=== PATIENT | female | born 1970 | race Native Hawaiian/Other Pacific Islander ===

== ENCOUNTER → 2016-10-24 | Outpatient (CLI) | payer OTHER ==
--- NOTE | 2016-10-25 10:25 | MM ---
Reason for exam: screening (asymptomatic). Last mammogram was performed 2 years and 6 months ago. History: Took hormonal contraceptives for 1 year. Physical Findings: A clinical breast exam by your physician is recommended on an annual basis and results should be correlated with mammographic findings. MG Screening Mammo w CAD Bilateral CC and MLO view(s) were taken. Prior study comparison: April 17, 2014, bilateral MG screening mammo w CAD. December 06, 2012, mammogram, performed at [place]. The breast tissue is extremely dense which could obscure a lesion on mammography. Finding: There are typically benign calcifications in the right breast. No significant changes in finding since April 17, 2014 and December 06, 2012. ASSESSMENT: Benign, BI-RAD 2 RECOMMENDATION: Routine screening mammogram of both breasts in 1 year.
== END | disposition home or self-care (01) ==
LOC: RADMAMWWP 15:12
PROVIDERS: ATTEND Family Medicine
DX: Z12.31 Encounter for screening mammogram for malignant neoplasm of breast (principal)

== ENCOUNTER → 2016-11-04 | Outpatient (CLI) | payer OTHER ==
--- NOTE | 2016-11-04 14:06 | US ---
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 GLAND SIZE: Right Lobe: 3.6 x 3.5 x 1.3 cm Overall Parenchyma: homogenous Left Lobe: 4.3 x 1.3 x 1.5 cm Overall Parenchyma: homogeneous Isthmus Thickness: 0.3 cm NODULES RIGHT: # of nodules measured on right: 0 LEFT: # of nodules measured on left: 0 ISTHMUS: # of nodules measured in the isthmus: 0 Findings: Bilateral neck scanned, no abnormal lymphadenopathy noted. NO distinct nodule noted on toda y's exam IMPRESSION: Normal study
== END | disposition home or self-care (01) ==
LOC: RADUSWWP 13:41
PROVIDERS: ATTEND Family Medicine
DX: E04.8 Other specified nontoxic goiter (principal)
CPT/HCPCS: 76536

== ENCOUNTER → 2017-02-03 | Outpatient (CLI) | payer OTHER ==
--- NOTE | 2017-02-03 17:14 | CT ---
EXAMINATION TYPE: CT abdomen w con DATE OF EXAM: 02/03/2017 4:33 PM COMPARISON: 05/26/2016 HISTORY: Patient complains of chronic periumbilical pain with periodic nausea and vomiting. CT DLP: 784 mGycm Automated exposure control for dose reduction was used. TECHNIQUE: Helical acquisition of images was performed from the lung bases through the top of iliac crest to include entire abdomen. CONTRAST: Performed with Oral Contrast and with IV Contrast, patient injected with 100 mL of Omnipaque 300. FINDINGS: Lung bases are clear. There is no pleural effusion. There are clips at the gastroesophageal junction. There is no pericardial effusion. Liver spleen pancreas appear normal. Gallbladder is absent. Bile ducts are not dilated. There is no a drenal mass. Kidneys show satisfactory contrast opacification. There is no hydronephrosis. There is a small umbilical hernia that contains omental fat. I see no sign of a bowel obstruction. There is no sign of ascites. There is no retroperitoneal adenopathy. The bony structures are intact. IMPRESSION: THERE IS CLEARING OF THE SUBSEGMENTAL ATELECTASIS COMPARED TO OLD EXAM. NO SIGN OF ACUTE ABDOMEN AND PELVIS. THERE IS CLEARING OF THE MILD EDEMA AT THE UMBILICUS COMPARED TO OLD EXAM. SMALL UMBILICAL HE RNIA.
== END | disposition home or self-care (01) ==
LOC: RADCTMAIN 15:31
PROVIDERS: ATTEND Family Medicine
DX: K42.9 Umbilical hernia without obstruction or gangrene (principal)
CPT/HCPCS: 74160; Q9967

== ENCOUNTER → 2017-03-15 | Outpatient (CLI) | payer OTHER ==
--- NOTE | 2017-03-15 13:16 | FL ---
Modified barium swallow. HISTORY: Dysphagia. Modified barium swallow was performed with the department of speech pathology. The patient was prese nted with various consistencies of barium. There is no evidence for aspiration or penetration. Full report is to follow from the department of speech pathology. Impression: Normal study.
== END | disposition home or self-care (01) ==
LOC: RADFLMAIN 10:55
PROVIDERS: ATTEND Family Medicine
DX: R13.19 Other dysphagia (principal)
CPT/HCPCS: 74230

== ENCOUNTER → 2017-04-25 | Outpatient (CLI) | payer OTHER ==
--- NOTE | 2017-04-25 16:35 | XR ---
Sinus HISTORY: Pain 4 views of the sinus Correlation to mandible same date Paranasal sinuses appear well aerated, question rounded density in the maxillary antrum right maxilla ry sinus. Bone mineralization is maintained. No evident lytic or blastic lesion. Orbits are intact. IMPRESSION: Correlate for point tenderness to assess for sinusitis. Possible mucus retention cyst rig ht maxillary sinus, CT scan of the sinus could be performed for better evaluation.
--- NOTE | 2017-04-25 16:36 | XR ---
Mandible HISTORY: Pain 4 views of the mandible Temporomandibular joints appear intact. No fracture or dislocation. Bone mineralization is maintained . Question asymmetric appearance to the mandible the patient may be rotated. IMPRESSION: No significant abnormality evident. Possible congenital anomaly.
== END | disposition home or self-care (01) ==
LOC: RADXRYALE 14:50
PROVIDERS: ATTEND Nurse Practitioner Family
DX: J32.9 Chronic sinusitis, unspecified (principal); R68.84 Jaw pain; R13.12 Dysphagia, oropharyngeal phase; K14.6 Glossodynia
CPT/HCPCS: 70110; 70220

== ENCOUNTER → 2017-05-04 | Outpatient (CLI) | payer OTHER ==
--- NOTE | 2017-05-04 17:03 | CT ---
EXAMINATION TYPE: CT sinus wo con DATE OF EXAM: 05/04/2017 COMPARISON: NONE HISTORY: Pain to sinus and jaw area x2 months. CT DLP: 581.[address] of the paranasal sinuses was performed in the axial and coronal planes. Bone and soft tissue settings are submitted. The paranasal sinuses demonstrate normal aeration and development. The paranasal sinuses are free of mucosal thickening or air fluid level. The osteal meatal units are patent bilaterally. The nasal septum is midline. No bony destructive changes are seen within the field of view. IMPRESSION: Normal unenhanced CT of the paranasal sinuses.
== END | disposition home or self-care (01) ==
LOC: RADCTMAIN 15:55
PROVIDERS: ATTEND Family Medicine
DX: J34.1 Cyst and mucocele of nose and nasal sinus (principal)
CPT/HCPCS: 70486

== ENCOUNTER → 2017-06-26 | Outpatient (CLI) | payer OTHER ==
--- NOTE | 2017-06-26 20:57 | CT ---
EXAMINATION TYPE: CT soft tissue neck w con DATE OF EXAM: 06/26/2017 8:22 PM COMPARISON: NONE HISTORY: Sore throat x 2-[address] DLP: 249.10 mGycm Automated exposure control for dose reduction was used. CONTRAST: CT scan of the neck is performed following with IV Contrast, patient injected with 100 mL of Omnipaqu e 300. Axial images are obtained, coronal and sagittal reformatted images are reviewed. FINDINGS: Apical pleural thickening within the lungs noted. Thyroid gland has a normal appearance. Vasculature enhances normally. Submandibular and parotid glands have a normal appearance Intraorbital and intracranial structures are symmetric. Nasopharynx and oropharynx are symmetric. Pre vertebral soft tissues and retropharyngeal soft tissue structures within normal limits Focal cords have a normal appearance. Base of tongue is symmetric. No pathologic adenopathy. Area of curvilinear enhancement along the margin of the right submandibular gland appears vascular related to blood vessels on the coronal and sagittal images. Hypertrophic and degenerative change of the spine. Epiglottis has a normal appearance. Shotty adenopa thy in the soft tissue the neck noted. IMPRESSION: No acute process.
== END | disposition home or self-care (01) ==
LOC: RADCTMAIN 19:34
PROVIDERS: ATTEND Otolaryngology
DX: R07.0 Pain in throat (principal); R13.10 Dysphagia, unspecified
CPT/HCPCS: 86800; 86376; 70491; 36415; Q9967

== ENCOUNTER → 2017-10-19 | Outpatient (CLI) | payer OTHER ==
--- NOTE | 2017-10-20 08:13 | CT ---
EXAMINATION TYPE: CT abdomen pelvis wo/w con DATE OF EXAM: 10/19/2017 COMPARISON: NONE INDICATION: LUQ pain and bloating x1 year. DLP: 642 mGycm, Automated exposure control for dose reduction was used. CONTRAST: 100 mL of Omnipaque 300. Study performed with Oral Contrast TECHNIQUE: Axial images were obtained from above the diaphragm to the pubic rami in the axial plane a t 5 mm thick sections. Reconstructed images are reviewed on the computer in the coronal plane. FINDINGS: Limited CT sections are obtained the lung bases. The lung bases are clear. CT ABDOMEN: There is an anterior abdominal wall hernia containing mesenteric fat with an opening of 3 .5 cm in the periumbilical region. No bowel are involved in close approximation with the opening. Liver: Normal Spleen: Normal Pancreas: Normal Adrenal glands: The adrenal glands are normal. Gallbladder: Normal Kidneys: No masses are evident. No hydronephrosis is present. No cysts are present. No renal stone s are identified. Postcontrast imaging is performed. No renal masses are identified. Aorta: Normal Inferior vena cava: Normal. CT PELVIS: Loops of bowel within the abdomen and pelvis are normal. Few diverticuli are present within the r egion of the cecum and within the sigmoid colon. Appendix: Not clearly identified. No suspicious inflammatory changes or dilated structures are eviden t. Urinary bladder: Urinary bladder appears unremarkable. Genitourinary structures: Uterus is normal. Adnexal regions are clear. Surgical clips are adjacent to the uterus. Osseous structures: No suspicious lytic or sclerotic lesions. IMPRESSIONS: 1. No acute abdomen or pelvis changes. 2. Diverticulosis without acute diverticulitis
== END | disposition home or self-care (01) ==
LOC: RADCTMAIN 16:03
PROVIDERS: ATTEND Nurse Practitioner Family
DX: K57.90 Diverticulosis of intestine, part unspecified, without perforation or abscess without bleeding (principal); R10.12 Left upper quadrant pain; R39.15 Urgency of urination
CPT/HCPCS: 74178; Q9967

== ENCOUNTER → 2017-12-28 | Outpatient (CLI) | payer OTHER ==
--- NOTE | 2017-12-29 14:05 | MR ---
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 No evident adenopathy. No free fluid in the pelvi s. Susceptibility artifacts are present compatible with fallopian tubal ligation clips. Suspect some nabothian cysts at the level of the cervix Urinary bladder is within normal limits. No abnormal enhan cement following contrast administration. Retained fecal debris present within the colon. Bone marrow signal is maintained. IMPRESSION: Correlate for fecal stasis. Postop changes. No significant interval change compared to pr ior CT.
== END | disposition home or self-care (01) ==
LOC: RADMRIMAIN 17:58
PROVIDERS: ATTEND Urology
DX: D41.3 Neoplasm of uncertain behavior of urethra (principal); Z98.890 Other specified postprocedural states
CPT/HCPCS: 72197; A9581

== ENCOUNTER 2018-02-16 21:44 | Emergency (ER) | payer OTHER ==
[2018-02-16 22:51] LABS: Basophils # (A) 0.1 k/uL (0-0.2); Basophils % (A) 1 %; Eosinophils # (A) 0.3 k/uL (0-0.7); Eosinophils % (A) 4 %; HCT 35.1 % (34.0-46.0); HGB 11.5 gm/dL (11.4-16.0); Lymphocytes # (A) 2.9 k/uL (1.0-4.8); Lymphocytes % (A) 34 %; MCH 26.7 pg (25.0-35.0); MCHC 32.7 g/dL (31.0-37.0); MCV 81.8 fL (80.0-100.0); Mean Platelet Volume 7.7; Monocytes # (A) 0.4 k/uL (0-1.0); Monocytes % (A) 5 %; Neutrophils # (A) 4.7 k/uL (1.3-7.7); Neutrophils % (A) 55 %; Platelet Count 284 k/uL (150-450); RBC 4.29 m/uL (3.80-5.40); RDW 14.8 % (11.5-15.5); WBC 8.5 k/uL (3.8-10.6)
[2018-02-16 22:52] LABS: Appearance,Urine Clear (Clear); Bilirubin,Urine Negative (Negative); Blood,Urine Negative (Negative); Color,Urine Colorless; Glucose,Urine (UA) Negative (Negative); Ketones,Urine Negative (Negative); Leukocyte Esterase,Urine Negative (Negative); Nitrite,Urine Negative (Negative); PH, Urine 5.5 (5.0-8.0); Protein,Urine Negative (Negative); Specific Gravity,Urine 1.006 (1.001-1.035); Urobilinogen,Urine <2.0 mg/dL (<2.0)
[2018-02-16 23:00] LABS: Albumin 4.7 g/dL (3.5-5.0); Calcium 9.3 mg/dL (8.4-10.2); Potassium 3.6 mmol/L (3.5-5.1); Total Bilirubin 0.3 mg/dL (0.2-1.3); Total Protein 8.9 g/dL (6.3-8.2)
--- NOTE | 2018-02-17 00:20 | ED ---
Abdominal Pain HPI - General Chief Complaint: Abdominal Pain Stated Complaint: Abd pain Time Seen by Provider: 02/16/18 22:23 Source: patient, family Mode of arrival: ambulatory Limitations: language barrier - History of Present Illness Initial Comments: 47-year-old female patient presents to the emergency department today for evaluation of upper abdominal pain. Patient states that the pain has been going on over the last several months. States that the pain worsened this evening. She denies any radiation of the pain into her back. Denies any fevers or chills. Denies any nausea or vomiting. Patient states that she did have computed tomography scan in October, showed no abnormalities. and daughter provided most of history is is a language barrier but they report that patient has been to see specialist in known can figure out what is wrong. Patient denies any alcohol or drug use. She denies any constipation or diarrhea. Patient has had hernia surgery in the past. Patient denies any recent rash, shortness breath, chest pain, numbness, tingling, dizziness, weakness, hematuria, dysuria, urinary urgency, urinary frequency, headache, visual changes, or any other complaints. - Related Data Home Medications Medication Instructions Recorded Confirmed Doxycycline Hyclate 100 mg PO BID 02/16/18 02/16/18 Levothyroxine Sodium [Synthroid] 50 mcg PO DAILY 02/16/18 02/16/18 Omeprazole 40 mg PO DAILY 02/16/18 02/16/18 Allergies Allergy/AdvReac Type Severity Reaction Status Date / Time No Known Allergies Allergy Verified 02/16/18 22:19 Review of Systems ROS Statement: Those systems with pertinent positive or pertinent negative responses have been documented in the HPI. ROS Other: All systems not noted in ROS Statement are negative. Past Medical History Past Medical History: GERD/Reflux, Osteoarthritis (OA) Additional Past Medical History / Comment(s): CURRENTLY HAVING STOMACH PAIN.HX. GASTRITIS History of Any Multi-Drug Resistant Organisms: None Reported Past Surgical History: Cholecystectomy, Tubal Ligation Additional Past Surgical History / Comment(s): EGD & COLONOSCOPY, Afsaneh fundoplication Past Anesthesia/Blood Transfusion Reactions: No Reported Reaction Past Psychological History: Anxiety, Depression Smoking Status: Never smoker Past Alcohol Use History: Rare Past Drug Use History: None Reported - Past Family History Mother Family Medical History: No Reported History Father Family Medical History: Myocardial Infarction ([place]) Additional Family Medical History / Comment(s): Patient has 2 brothers that are healthy and 5 sisters that are healthy. Patient has 2 sons and 2 daughters that are healthy with no major medical problems. General Exam Limitations: language barrier General appearance: alert, in no apparent distress, other (This is a well- developed, well-nourished adult female patient in no acute distress. Vital signs upon presentation are temperature 98.2F, pulse 77, respirations 16, blood pressure 175/96, pulse ox 98% on room air.) Eye exam: Present: normal appearance, PERRL, EOMI. Absent: scleral icterus, conjunctival injection, periorbital swelling ENT exam: Present: normal exam, normal oropharynx, mucous membranes moist Respiratory exam: Present: normal lung sounds bilaterally. Absent: respiratory distress, wheezes, rales, rhonchi, stridor Cardiovascular Exam: Present: regular rate, normal rhythm, normal heart sounds. Absent: systolic murmur, diastolic murmur, rubs, gallop, clicks GI/Abdominal exam: Present: soft, normal bowel sounds. Absent: distended, tenderness, guarding, rebound, rigid Neurological exam: Present: alert, oriented X3, CN II-XII intact Psychiatric exam: Present: normal affect, normal mood Skin exam: Present: warm, dry, intact, normal color. Absent: rash Course Vital Signs 02/16/18 02/17/18 21:57 00:26 Temperature 98.2 F 98.8 F Pulse Rate 77 64 Respiratory 16 18 Rate Blood Pressure 175/96 147/70 O2 Sat by Pulse 98 95 Oximetry Medical Decision Making - Medical Decision Making 47-year-old female patient presented to the emergency department today for evaluation of upper abdominal pain. Physical examination was relatively unremarkable. Abdomen was soft and nontender. Labs reviewed and did reveal mildly elevated lipase with this is not new for the patient. Patient states that the pain is improved at this time. She denied any need for pain medication. Did discuss results and findings with the patient and her family. They're instructed to follow-up with her primary care physician as well as request specialist consultation of her pain symptoms continue. Return parameters discussed in detail. Patient and family verbalizes understanding and agrees with this plan. - Lab Data Result diagrams: 02/16/18 22:43 02/16/18 22:43 Lab Results 06/04/2802/16/18 02/16/18 Range/Units 22:43 22:43 22:43 WBC 8.5 (3.8-10.6) k/uL RBC 4.29 (3.80-5.40) m/uL Hgb 11.5 (11.4-16.0) gm/dL Hct 35.1 (34.0-46.0) % MCV 81.8 (80.0-100.0) fL MCH 26.7 (25.0-35.0) pg MCHC 32.7 (31.0-37.0) g/dL RDW 14.8 (11.5-15.5) % Plt Count 284 (150-450) k/uL Neutrophils % 55 % Lymphocytes % 34 % Monocytes % 5 % Eosinophils % 4 % Basophils % 1 % Neutrophils # 4.7 (1.3-7.7) k/uL Lymphocytes # 2.9 (1.0-4.8) k/uL Monocytes # 0.4 (0-1.0) k/uL Eosinophils # 0.3 (0-0.7) k/uL Basophils # 0.1 (0-0.2) k/uL Sodium 145 (137-145) mmol/L Potassium 3.6 (3.5-5.1) mmol/L Chloride 107 (98-107) mmol/L Carbon Dioxide 24 (22-30) mmol/L Anion Gap 14 mmol/L BUN 18 H (7-17) mg/dL Creatinine 1.00 (0.52-1.04) mg/dL Est GFR (CKD-EPI)AfAm 77 (>60 ml/min/1.73 sqM) Est GFR (CKD-EPI)NonAf 67 (>60 ml/min/1.73 sqM) Glucose 99 (74-99) mg/dL Calcium 9.3 (8.4-10.2) mg/dL Total Bilirubin 0.3 (0.2-1.3) mg/dL AST 35 (14-36) U/L ALT 39 (9-52) U/L Alkaline Phosphatase 90 (38-126) U/L Total Protein 8.9 H (6.3-8.2) g/dL Albumin 4.7 (3.5-5.0) g/dL Amylase 102 (30-110) U/L Lipase 368 H (23-300) U/L Urine Color Colorless Urine Appearance Clear (Clear) Urine pH 5.5 (5.0-8.0) Ur Specific [place] 1.006 (1.001-1.035) Urine Protein Negative (Negative) Urine Glucose (UA) Negative (Negative) Urine Ketones Negative (Negative) Urine Blood Negative (Negative) Urine Nitrite Negative (Negative) Urine Bilirubin Negative (Negative) Urine Urobilinogen <2.0 (<2.0) mg/dL Ur Leukocyte Esterase Negative (Negative) Disposition Clinical Impression: Abdominal pain Disposition: HOME SELF-CARE Condition: Good Instructions: Abdominal Pain (ED) Additional Instructions: Follow-up with your primary care physician as soon as possible. Discuss referral to specialist. Return here immediately for any new, worsening, or concerning symptoms. Is patient prescribed a controlled substance at d/c from ED?: No Referrals: Nancy Gallardo DO [Primary Care Provider] - 1-2 days Time of Disposition: 00:20
[2018-02-17 00:27] VITALS: BP 147/70; PULSE 64; RESP 18; TEMP 98.8
== END 2018-02-17 00:30 | disposition home or self-care (01) ==
LOC: EC 21:44
DX: R10.10 Upper abdominal pain, unspecified (principal); R74.8 Abnormal levels of other serum enzymes; K21.9 Gastro-esophageal reflux disease without esophagitis; Z79.899 Other long term (current) drug therapy; Z87.19 Personal history of other diseases of the digestive system; Z90.49 Acquired absence of other specified parts of digestive tract; Z98.890 Other specified postprocedural states
CPT/HCPCS: 36415; 80053; 81003; 82150; 83690; 85025; 99284

== ENCOUNTER 2018-05-17 10:38 | Day surgery (SDC) | payer OTHER ==
[2018-05-15 15:39] VITALS: BMI 24.5
[~2018-05-17 10:38] MED LIST: LACTATED RINGERS 1,000 ML IV SCH
[2018-05-17 11:04] VITALS: RESP 16; TEMP 97.2
[2018-05-17] MEDS ORDERED: LIDOCAINE 1% 20 ML VIAL (10MG/ML) FOR IV START INTRADERMA ONE (11:10)
[2018-05-17] MEDS ORDERED: LIDOCAINE 1% INJ 10MG/ML (20 ML MDV) ONE (11:11)
[2018-05-17] MEDS ORDERED: PROPOFOL 10 MG/ML 20 ML VIAL IV ONE (11:11)
--- NOTE | 2018-05-17 11:33 | P.PCN ---
Date of Procedure: 05/17/18 Procedure(s) Performed: BRIEF HISTORY: Patient is a 47-year-old, pleasant, female, scheduled for an upper endoscopy as a part of evaluation of heartburn, epigastric discomfort and left upper quadrant abdominal pain for the last 2 years duration. She has history of GERD and underwent Afsaneh fundoplication 2 years ago with no improvement in his symptoms. She is hence scheduled for an upper endoscopy to evaluate further. PROCEDURE PERFORMED: Esophagogastroduodenoscopy with biopsy. PREOPERATIVE DIAGNOSIS: Epigastric pain and heartburn of 2 years duration. IV sedation per anesthesia. PROCEDURE: After informed consent was obtained, the patient was brought into the endoscopy unit. IV sedation was administered by Anesthesia under continuous monitoring. Initially the Olympus GIF-140 video endoscope was inserted into the mouth. Esophagus intubated without any difficulty. It was gradually advanced into the stomach and duodenum and carefully examined. The bulb and the second part of the duodenum appeared normal. Abscess were done from this area to rule out celiac disease. The scope at this time was withdrawn to the stomach, adequately insufflated with air, and upon careful examination, mucosa of the antrum had patchy areas of erythema and biopsies were done from this area. The , body, cardia and the fundus appeared normal. The scope was then withdrawn into the esophagus. The GE junction was located at 39 cm from the incisors. The esophagus appeared normal. There were no erosions or ulcerations seen, biopsies were done from this area and the patient tolerated the procedure well. IMPRESSION: 1. Mild antral Gastritis. 2. Normal-appearing esophagus with no evidence of esophagitis or hiatal hernia. RECOMMENDATIONS: The findings of this examination were discussed with the patient as well as her family.. She will follow with the biopsy results. She was advised to increase Zantac 150 milligrams twice daily and follow antireflux measures.
[2018-05-17 12:05] VITALS: BP 164/88; PULSE 55
== END 2018-05-17 12:08 | disposition home or self-care (01) ==
LOC: ORWHC2ENDO 10:38
PROVIDERS: ATTEND Internal Medicine Gastroenterology
DX: K29.80 Duodenitis without bleeding (principal); K29.50 Unspecified chronic gastritis without bleeding; B96.81 Helicobacter pylori [H. pylori] as the cause of diseases classified elsewhere; K21.0 Gastro-esophageal reflux disease with esophagitis; R19.7 Diarrhea, unspecified; I10 Essential (primary) hypertension; G43.909 Migraine, unspecified, not intractable, without status migrainosus; E07.9 Disorder of thyroid, unspecified; Z79.890 Hormone replacement therapy; Z79.899 Other long term (current) drug therapy; Z79.1 Long term (current) use of non-steroidal anti-inflammatories (NSAID)
CPT/HCPCS: 81025; 43239; J2001; J2704; 88305

== ENCOUNTER 2018-10-03 12:34 | Emergency (ER) | payer OTHER ==
[2018-10-03] MEDS ORDERED: BENZONATATE 100 MG CAP PO STA (13:05)
[2018-10-03] MEDS ORDERED: ACETAMINOPHEN TAB 500 MG TAB PO STA (13:05)
--- NOTE | 2018-10-03 13:09 | ED ---
General Adult HPI - General Chief complaint: ENT Stated complaint: Throat Pain/Infection x8 days Time Seen by Provider: 10/03/18 12:47 Source: patient, RN notes reviewed Mode of arrival: ambulatory Limitations: no limitations - History of Present Illness Initial comments: Patient is a 47-year-old female who presents to the emergency department with complaint of sore throat for 8 days. Also reports cough productive of mucus. She reports seeing her doctor and being prescribed amoxicillin. She reports having been tested for influenza and was negative. She reports she had a fever couple days ago but none since. She took Motrin yesterday but no Motrin or Tylenol today. Patient denies any recent shortness of breath, chest pain, back pain, abdominal pain, nausea or vomiting, numbness or tingling, or any other complaints. - Related Data Home Medications Medication Instructions Recorded Confirmed Levothyroxine Sodium [Synthroid] 50 mcg PO DAILY 02/16/18 05/17/18 FLUoxetine HCL [PROzac] 20 mg PO 1800 05/15/18 05/17/18 Ferrous Fumarate Tab 324 mg PO 1500 05/15/18 05/17/18 Ibuprofen [Motrin Ib] 200 mg PO DIRECTED PRN 05/15/18 05/17/18 Losartan [Cozaar] 50 mg PO DAILY 05/15/18 05/17/18 Ranitidine HCl 150 mg PO DAILY 05/15/18 05/17/18 Previous Rx's Medication Instructions Recorded Benzocaine/Menthol Lozeng [Cepacol 1 each MUCOUS MEM Q4HR PRN #18 10/03/18 lozenge] lozenge Allergies Allergy/AdvReac Type Severity Reaction Status Date / Time No Known Allergies Allergy Verified 10/03/18 12:48 Review of Systems ROS Statement: Those systems with pertinent positive or pertinent negative responses have been documented in the HPI. ROS Other: All systems not noted in ROS Statement are negative. Past Medical History Past Medical History: GERD/Reflux, Osteoarthritis (OA) Additional Past Medical History / Comment(s): CURRENTLY HAVING STOMACH PAIN.HX. GASTRITIS History of Any Multi-Drug Resistant Organisms: None Reported Past Surgical History: Cholecystectomy, Tubal Ligation Additional Past Surgical History / Comment(s): EGD & COLONOSCOPY, Afasneh fundoplication Past Anesthesia/Blood Transfusion Reactions: No Reported Reaction Past Psychological History: Anxiety, Depression Smoking Status: Current every day smoker Past Alcohol Use History: Rare Past Drug Use History: None Reported - Past Family History Mother Family Medical History: No Reported History Father Family Medical History: Myocardial Infarction ([place]) Additional Family Medical History / Comment(s): Patient has 2 brothers that are healthy and 5 sisters that are healthy. Patient has 2 sons and 2 daughters that are healthy with no major medical problems. General Exam Limitations: no limitations General appearance: alert, in no apparent distress, other (Does not cough during exam.) Head exam: Present: atraumatic, normocephalic Eye exam: Present: normal appearance, PERRL, EOMI ENT exam: Present: TM's normal bilaterally, normal external ear exam, other ( Oropharynx is erythematous.) Neck exam: Present: full ROM, lymphadenopathy Respiratory exam: Present: normal lung sounds bilaterally. Absent: wheezes, rales, rhonchi Cardiovascular Exam: Present: regular rate, normal rhythm Neurological exam: Present: alert, oriented X3, CN II-XII intact Skin exam: Present: warm, dry Course Vital Signs 10/03/18 10/03/18 12:48 14:45 Temperature 97.6 F 98.0 F Pulse Rate 67 88 Respiratory 18 16 Rate Blood Pressure 176/86 162/88 O2 Sat by Pulse 98 98 Oximetry Medical Decision Making - Medical Decision Making Rapid strep is negative. Heterophile antibody is negative. Will prescribe Cepacol lozenge. - Lab Data Lab Results 10/03/18 10/03/18 Range/Units 12:50 13:15 Heterophile Antibody Negative (Negative) Group A Strep Rapid Negative (Negative) Disposition Clinical Impression: Pharyngitis Disposition: HOME SELF-CARE Condition: Good Instructions (If sedation given, give patient instructions): Pharyngitis (ED) Additional Instructions: Follow-up with your PCP in 1 to 2 days. Return to the emergency department if your symptoms worsen or other concerns. Prescriptions: Benzocaine/Menthol Lozeng [Cepacol lozenge] 1 each MUCOUS MEM Q4HR PRN #18 lozenge PRN Reason: Sore Throat Is patient prescribed a controlled substance at d/c from ED?: No Referrals: Nancy Gallardo DO [Primary Care Provider] - 1-2 days Time of Disposition: 14:44
[2018-10-03 14:49] VITALS: BP 162/88; PULSE 88; RESP 16; TEMP 98
== END 2018-10-03 14:45 | disposition home or self-care (01) ==
LOC: EC 12:34
DX: J02.9 Acute pharyngitis, unspecified (principal); K21.9 Gastro-esophageal reflux disease without esophagitis; M19.90 Unspecified osteoarthritis, unspecified site; F32.9 Major depressive disorder, single episode, unspecified; F17.200 Nicotine dependence, unspecified, uncomplicated; Z87.19 Personal history of other diseases of the digestive system; Z90.49 Acquired absence of other specified parts of digestive tract; Z98.51 Tubal ligation status; Z98.890 Other specified postprocedural states; Z79.890 Hormone replacement therapy; Z79.899 Other long term (current) drug therapy
CPT/HCPCS: 36415; 86308; 87081; 87430; 99283

== ENCOUNTER 2018-11-15 09:49 | Emergency (ER) | payer OTHER ==
[2018-11-15] MEDS ORDERED: KETOROLAC 30 MG/ML 1 ML VIAL IVP STA (10:06)
[2018-11-15] MEDS ORDERED: SODIUM CHLORIDE 0.9% 1,000 ML IV STA (10:06)
[2018-11-15 10:52] LABS: Appearance,Urine Clear (Clear); Basophils # (A) 0.1 k/uL (0-0.2); Basophils % (A) 1 %; Bilirubin,Urine Negative (Negative); Blood,Urine Negative (Negative); Color,Urine Light Yellow; Eosinophils # (A) 0.2 k/uL (0-0.7); Eosinophils % (A) 4 %; Glucose,Urine (UA) Negative (Negative); HCT 37.7 % (34.0-46.0); HGB 12.6 gm/dL (11.4-16.0); Ketones,Urine Negative (Negative); Leukocyte Esterase,Urine Negative (Negative); Lymphocytes # (A) 2.1 k/uL (1.0-4.8); Lymphocytes % (A) 41 %; MCHC 33.4 g/dL (31.0-37.0); MCV 86.7 fL (80.0-100.0); Mean Platelet Volume 8.1; Monocytes # (A) 0.2 k/uL (0-1.0); Monocytes % (A) 4 %; Neutrophils # (A) 2.5 k/uL (1.3-7.7); Neutrophils % (A) 48 %; Nitrite,Urine Negative (Negative); Platelet Count 241 k/uL (150-450); Protein,Urine Negative (Negative); RBC 4.35 m/uL (3.80-5.40); RDW 13.3 % (11.5-15.5); Specific Gravity,Urine 1.005 (1.001-1.035); Urobilinogen,Urine <2.0 mg/dL (<2.0); WBC 5.2 k/uL (3.8-10.6)
[2018-11-15 11:07] LABS: ALT 34 U/L (9-52); AST 22 U/L (14-36); Albumin 4.3 g/dL (3.5-5.0); Alkaline Phosphatase 89 U/L (38-126); Amylase 74 U/L (30-110); Anion Gap 7 mmol/L; Blood Urea Nitrogen 14 mg/dL (7-17); Calcium 9.4 mg/dL (8.4-10.2); Carbon Dioxide 29 mmol/L (22-30); Chloride 106 mmol/L (98-107); Glucose 89 mg/dL (74-99); Potassium 4.2 mmol/L (3.5-5.1); Sodium 142 mmol/L (137-145); Total Bilirubin 0.5 mg/dL (0.2-1.3); Total Protein 7.8 g/dL (6.3-8.2)
[2018-11-15] MEDS ORDERED: MORPHINE SULFATE 2 MG/ML SYRINGE IVP STA (11:36)
--- NOTE | 2018-11-15 11:39 | CT ---
EXAMINATION TYPE: CT abdomen pelvis w con DATE OF EXAM: 11/15/2018 COMPARISON: 10/19/2017 HISTORY: 47-year-old female left side abdominal pain TECHNIQUE: Contiguous axial scanning of the abdomen and pelvis following administration of 100 ml Iso mary 300 IV contrast. Delayed images through the kidneys and coronal/sagittal reconstructions perform ed. CT DLP: 594.8 mGycm Automated exposure control for dose reduction was used. FINDINGS: The heart is normal size without pericardial effusion. Lung bases clear without pleural effusion. Tin y calcified granuloma posterior right base. Postsurgical changes of Oswaldo fundoplication. No focal liver lesion. No biliary ductal dilatation. Gallbladder surgically absent. Portal venous sys tem is patent. Adrenal glands, kidneys, spleen, and pancreas appear within normal limits. No dilated small bowel, free fluid, or free air. Small fatty umbilical hernia. No mesenteric or retroperitoneal lymphadenopathy. Mild to moderate stool burden. No pericolonic inflammatory change. Tortuous sigmoid colon area Bilateral tubal ligation clips. There is an anteverted but retroflexed uterus. The ovaries are visual ized. No abnormal fluid collection in the pelvis or pelvic lymphadenopathy. Bones: No osseous destructive process. IMPRESSION: SMALL FATTY UMBILICAL HERNIA AND PRIOR OSWALDO FUNDOPLICATION. STATUS POST CHOLECYSTECTOMY. BILATERAL TUBAL LIGATION CLIPS. ANTEVERTED BUT RETROFLEXED UTERUS. NO ACUTE INFLAMMATORY PROCESS IDENTIFIED IN THE ABDOMEN OR PELVIS TO EXPLAIN THE PATIENT'S SYMPTOMS.
--- NOTE | 2018-11-15 12:54 | US ---
EXAMINATION TYPE: US transvaginal DATE OF EXAM: 11/15/2018 COMPARISON: CT 2019 CLINICAL HISTORY: Pain. Left pelvic and flank pain x 3 days, 3, para 3, history of tubal liga tion. TECHNIQUE: Transvaginal ER exam. Date of LMP: September 2018 EXAM MEASUREMENTS: Uterus: 5.8 x 3.4 x 5.2 cm Endometrial Stripe: 0.4 cm Right Ovary: 1.7 x 1.1 x 0.9 cm Left Ovary: not seen 1. Uterus: retroverted, heterogeneous 2. Endometrium: appears wnl 3. Right Ovary: wnl 4. Left Ovary: not seen due to overlying bowel Spectral, color and waveform doppler imaging shows good arterial flow within the right ovary, unabl e to obtain venous flow within the right ovary. 5. Bilateral Adnexa: wnl 6. Posterior cul-de-sac: small amount of free fluid IMPRESSION: 1. Nonvisualization of the left ovary. 2. Arterial flow is seen to the right ovary however venous flow cannot be demonstrated and may be eduardo hnical. Although right ovarian torsion is not suspected, it cannot be excluded. 3. Retroverted and heterogenous uterus with suspected fibroid change.
--- NOTE | 2018-11-15 13:12 | ED ---
Abdominal Pain HPI - General Chief Complaint: Abdominal Pain Stated Complaint: left side abdominal pain Time Seen by Provider: 11/15/18 10:06 Source: patient Mode of arrival: ambulatory Limitations: no limitations - History of Present Illness Initial Comments: 47-year-old female presenting today for chief complaint of left flank pain that radiates to his left groin. Patient states that for the past 23 days she has had left flank pain that radiates towards the left groin. She denies any urgency frequency dysuria or hematuria. Patient denies any fever or chills. Patient denies any severe abdominal pain. Patient states the pain is mostly in the left flank/back. Patient denies any injury to the area. Patient denies any agitating or alleviating factors. Patient is unable to fully describe characteristics. There is language barrier as patient is divehi speaking, interpretation was used via provided hospital service. Pt denies any abnormal pelvic pain, discharge or bleeding. Remaining ROS (-), patient denies any recent fever, chills, shortness of breath, chest pain, nausea or vomiting, numbness or tingling, dysuria or hematuria, constipation or diarrhea, headaches or visual changes, or any other complaints. Upon arrival patient does not appearing in acute distress. - Related Data Home Medications Medication Instructions Recorded Confirmed Levothyroxine Sodium [Synthroid] 50 mcg PO DAILY 02/16/18 11/15/18 FLUoxetine HCL [PROzac] 20 mg PO DAILY@1800 05/15/18 11/15/18 Omeprazole [PriLOSEC] 40 mg PO DAILY 11/15/18 11/15/18 Allergies Allergy/AdvReac Type Severity Reaction Status Date / Time No Known Allergies Allergy Verified 11/15/18 10:23 Review of Systems ROS Statement: Those systems with pertinent positive or pertinent negative responses have been documented in the HPI. ROS Other: All systems not noted in ROS Statement are negative. Past Medical History Past Medical History: GERD/Reflux, Osteoarthritis (OA) Additional Past Medical History / Comment(s): CURRENTLY HAVING STOMACH PAIN.HX. GASTRITIS History of Any Multi-Drug Resistant Organisms: None Reported Past Surgical History: Cholecystectomy, Tubal Ligation Additional Past Surgical History / Comment(s): EGD & COLONOSCOPY, Afsaneh fundoplication Past Anesthesia/Blood Transfusion Reactions: No Reported Reaction Past Psychological History: Anxiety, Depression Smoking Status: Never smoker Past Alcohol Use History: None Reported Past Drug Use History: None Reported - Past Family History Mother Family Medical History: No Reported History Father Family Medical History: Myocardial Infarction ([place]) Additional Family Medical History / Comment(s): Patient has 2 brothers that are healthy and 5 sisters that are healthy. Patient has 2 sons and 2 daughters that are healthy with no major medical problems. General Exam - General Exam Comments Initial Comments: General: The patient is awake and alert, in no distress, and does not appear acutely ill. Eye: Pupils are equal, round and reactive to light, extra-ocular movements are intact. No nystagmus. There is normal conjunctiva bilaterally. No signs of icterus. Ears, nose, mouth and throat: There are moist mucous membranes and no oral lesions. Neck: The neck is supple, there is no tenderness or JVD. Cardiovascular: There is a regular rate and rhythm. No murmur, rub or gallop is appreciated. Respiratory: Lungs are clear to auscultation, respirations are non-labored, breath sounds are equal. No wheezes, stridor, rales, or rhonchi. Gastrointestinal: Soft, non-distended, without masses or organomegaly noted. Mild tenderness to palpation of the left lower quadrant, no lower pelvic pain. There is no rebound or guarding present, no rigidity. No CVA tenderness. Bowel sounds are unremarkable. Musculoskeletal: Normal ROM, no tenderness. Strength 5/5. Sensation intact. Radial and DP pulses equal bilaterally 2+. No midline tenderness to palpation of the lumbar spine. Negative straight leg raise bilaterally. She does have paravertebral tenderness of the lumbar spine Neurological: A&O x 3. CN II-XII intact, There are no obvious motor or sensory deficits. Coordination appears grossly intact. Speech is normal. Skin: Skin is warm and dry and no rashes or lesions are noted. Psychiatric: Cooperative, appropriate mood & affect, normal judgment. Limitations: no limitations Course Vital Signs 11/15/18 11/15/18 11/15/18 09:51 12:40 13:30 Temperature 98 F 97.8 F 97.5 F L Pulse Rate 69 78 70 Respiratory 18 16 18 Rate Blood Pressure 179/85 173/93 165/86 O2 Sat by Pulse 99 98 100 Oximetry Medical Decision Making - Medical Decision Making Refer to HPI/PE. Laboratory studies. unremarkable. Urinalysis within normal limits no hematuria. Abdominal exam benign no rigidity, guarding Or posturing. Patient complains of left flank/back pain. There is no abnormalities on CT of abdomen pelvis with contrast. Patient given pain medication which she states helped but didnt completely resolve symptoms. Given language barrier and vague complaint I had US of pelvis performed although patient did not appear overtly tender in the area. No acute findings although left US no visualized. No free fluid. Patient did have some tenderness paravertbral of the lumbar spine, possible musculoskeletal orgin on ddx. Patient continues to appear well. This time due to patients today for discharge with outpatient follow-up. I did discuss the case in detail with attending Dr. Rubio who reviewed the laboratory studies as well as imaging who is agreeable plan and discharged. Findings discussed using interpretation with patient who verbalized understanding of discharge and plan. Denied questions. Patient discharged appearing well. - Lab Data Result diagrams: 11/15/18 10:30 11/15/18 10:30 Lab Results 11/15/18 11/15/18 11/15/18 Range/Units 10:30 10:30 10:30 WBC 5.2 (3.8-10.6) k/uL RBC 4.35 (3.80-5.40) m/uL Hgb 12.6 (11.4-16.0) gm/dL Hct 37.7 (34.0-46.0) % MCV 86.7 (80.0-100.0) fL MCH 29.0 (25.0-35.0) pg MCHC 33.4 (31.0-37.0) g/dL RDW 13.3 (11.5-15.5) % Plt Count 241 (150-450) k/uL Neutrophils % 48 % Lymphocytes % 41 % Monocytes % 4 % Eosinophils % 4 % Basophils % 1 % Neutrophils # 2.5 (1.3-7.7) k/uL Lymphocytes # 2.1 (1.0-4.8) k/uL Monocytes # 0.2 (0-1.0) k/uL Eosinophils # 0.2 (0-0.7) k/uL Basophils # 0.1 (0-0.2) k/uL Sodium 142 (137-145) mmol/L Potassium 4.2 (3.5-5.1) mmol/L Chloride 106 (98-107) mmol/L Carbon Dioxide 29 (22-30) mmol/L Anion Gap 7 mmol/L BUN 14 (7-17) mg/dL Creatinine 0.77 (0.52-1.04) mg/dL Est GFR (CKD-EPI)AfAm >90 (>60 ml/min/1.73 sqM) Est GFR (CKD-EPI)NonAf >90 (>60 ml/min/1.73 sqM) Glucose 89 (74-99) mg/dL Calcium 9.4 (8.4-10.2) mg/dL Total Bilirubin 0.5 (0.2-1.3) mg/dL AST 22 (14-36) U/L ALT 34 (9-52) U/L Alkaline Phosphatase 89 (38-126) U/L Troponin I (0.000-0.034) ng/mL Total Protein 7.8 (6.3-8.2) g/dL Albumin 4.3 (3.5-5.0) g/dL Amylase 74 (30-110) U/L Urine Color Light Yellow Urine Appearance Clear (Clear) Urine pH 5.0 (5.0-8.0) Ur Specific [place] 1.005 (1.001-1.035) Urine Protein Negative (Negative) Urine Glucose (UA) Negative (Negative) Urine Ketones Negative (Negative) Urine Blood Negative (Negative) Urine Nitrite Negative (Negative) Urine Bilirubin Negative (Negative) Urine Urobilinogen <2.0 (<2.0) mg/dL Ur Leukocyte Esterase Negative (Negative) 11/15/18 Range/Units 10:30 WBC (3.8-10.6) k/uL RBC (3.80-5.40) m/uL Hgb (11.4-16.0) gm/dL Hct (34.0-46.0) % MCV (80.0-100.0) fL MCH (25.0-35.0) pg MCHC (31.0-37.0) g/dL RDW (11.5-15.5) % Plt Count (150-450) k/uL Neutrophils % % Lymphocytes % % Monocytes % % Eosinophils % % Basophils % % Neutrophils # (1.3-7.7) k/uL Lymphocytes # (1.0-4.8) k/uL Monocytes # (0-1.0) k/uL Eosinophils # (0-0.7) k/uL Basophils # (0-0.2) k/uL Sodium (137-145) mmol/L Potassium (3.5-5.1) mmol/L Chloride (98-107) mmol/L Carbon Dioxide (22-30) mmol/L Anion Gap mmol/L BUN (7-17) mg/dL Creatinine (0.52-1.04) mg/dL Est GFR (CKD-EPI)AfAm (>60 ml/min/1.73 sqM) Est GFR (CKD-EPI)NonAf (>60 ml/min/1.73 sqM) Glucose (74-99) mg/dL Calcium (8.4-10.2) mg/dL Total Bilirubin (0.2-1.3) mg/dL AST (14-36) U/L ALT (9-52) U/L Alkaline Phosphatase (38-126) U/L Troponin I <0.012 (0.000-0.034) ng/mL Total Protein (6.3-8.2) g/dL Albumin (3.5-5.0) g/dL Amylase (30-110) U/L Urine Color Urine Appearance (Clear) Urine pH (5.0-8.0) Ur Specific [place] (1.001-1.035) Urine Protein (Negative) Urine Glucose (UA) (Negative) Urine Ketones (Negative) Urine Blood (Negative) Urine Nitrite (Negative) Urine Bilirubin (Negative) Urine Urobilinogen (<2.0) mg/dL Ur Leukocyte Esterase (Negative) Disposition Clinical Impression: Flank pain Disposition: HOME SELF-CARE Condition: Good Instructions (If sedation given, give patient instructions): Abdominal Pain (ED), Flank Pain (ED) Additional Instructions: Please use medication as discussed. Please follow-up with family doctor in the next 2 days,. Please return to emergency room if the symptoms increase or worsen or for any other concerns. Is patient prescribed a controlled substance at d/c from ED?: No Referrals: Nancy Gallardo DO [Primary Care Provider] - 1-2 days Time of Disposition: 13:12
[2018-11-15 13:31] VITALS: BP 165/86; PULSE 70; RESP 18; TEMP 97.5
== END 2018-11-15 13:30 | disposition home or self-care (01) ==
LOC: EC 09:49
DX: R10.9 Unspecified abdominal pain (principal); R29.898 Other symptoms and signs involving the musculoskeletal system; K21.9 Gastro-esophageal reflux disease without esophagitis; F32.9 Major depressive disorder, single episode, unspecified; F41.9 Anxiety disorder, unspecified; Z79.890 Hormone replacement therapy; Z79.899 Other long term (current) drug therapy; Z90.49 Acquired absence of other specified parts of digestive tract; Z98.51 Tubal ligation status
CPT/HCPCS: 36415; 80053; 82150; 84484; 85025; 81003; 87086; 93976; 76830; 74177; 99284; 96374; 96375; 96361 ×2; J1885; J2270; Q9967

== ENCOUNTER 2018-11-16 08:31 | Emergency (ER) | payer OTHER ==
[2018-11-16 08:37] VITALS: RESP 18; TEMP 98.5
[2018-11-16] MEDS ORDERED: KETOROLAC 30 MG/ML 1 ML VIAL IVP STA ×2 (09:17→10:51)
[2018-11-16] MEDS ORDERED: LORazepam 2 MG/ML INJ IV STA (09:17)
[2018-11-16] MEDS ORDERED: methylPREDNISolone SOD SUCCI 125 MG/2 ML VIAL IV STA (09:17)
--- NOTE | 2018-11-16 09:33 | ED ---
General Adult HPI - General Chief complaint: Abdominal Pain Stated complaint: flank pain-revisit Time Seen by Provider: 11/16/18 08:56 Source: patient, RN notes reviewed Mode of arrival: ambulatory Limitations: no limitations - History of Present Illness Initial comments: This is a 47-year-old female with a four-day history of left flank pain who was seen here yesterday had a very extensive workup done with no results who presents back today with complaints of severe left-sided back and flank pain. She points her left low back area he states it radiates around to the front it's associated very sharp in nature. Does get worse with movements. She is not recall any particular incident that may have hurt her back. Information is gathered through an glass pulverizer equipment operator is a family member. Otherwise no difference in the pain over last 4 days. - Related Data Home Medications Medication Instructions Recorded Confirmed Levothyroxine Sodium [Synthroid] 50 mcg PO DAILY 02/16/18 11/16/18 FLUoxetine HCL [PROzac] 20 mg PO DAILY@1800 05/15/18 11/16/18 Omeprazole [PriLOSEC] 40 mg PO DAILY 11/15/18 11/16/18 Previous Rx's Medication Instructions Recorded Ibuprofen 800 mg PO Q6HR PRN #20 tablet 11/16/18 Orphenadrine [Norflex] 100 mg PO Q12H #7 tablet.er 11/16/18 predniSONE 20 mg PO BID #10 tab 11/16/18 Allergies Allergy/AdvReac Type Severity Reaction Status Date / Time No Known Allergies Allergy Verified 11/16/18 08:49 Review of Systems ROS Statement: Those systems with pertinent positive or pertinent negative responses have been documented in the HPI. ROS Other: All systems not noted in ROS Statement are negative. Past Medical History Past Medical History: GERD/Reflux, Osteoarthritis (OA) Additional Past Medical History / Comment(s): CURRENTLY HAVING STOMACH PAIN.HX. GASTRITIS History of Any Multi-Drug Resistant Organisms: None Reported Past Surgical History: Cholecystectomy, Tubal Ligation Additional Past Surgical History / Comment(s): EGD & COLONOSCOPY, Afsaneh fundoplication Past Anesthesia/Blood Transfusion Reactions: No Reported Reaction Past Psychological History: Anxiety, Depression Smoking Status: Never smoker Past Alcohol Use History: None Reported Past Drug Use History: None Reported - Past Family History Mother Family Medical History: No Reported History Father Family Medical History: Myocardial Infarction ([place]) Additional Family Medical History / Comment(s): Patient has 2 brothers that are healthy and 5 sisters that are healthy. Patient has 2 sons and 2 daughters that are healthy with no major medical problems. General Exam - General Exam Comments Initial Comments: This a well-developed well-nourished awake alert oriented 3 female Limitations: no limitations General appearance: alert, anxious, in distress Head exam: Present: atraumatic, normocephalic, normal inspection Eye exam: Present: normal appearance, PERRL, EOMI. Absent: scleral icterus, conjunctival injection, periorbital swelling ENT exam: Present: normal exam, mucous membranes moist Neck exam: Present: normal inspection. Absent: tenderness, meningismus, lymphadenopathy Respiratory exam: Present: normal lung sounds bilaterally. Absent: respiratory distress, wheezes, rales, rhonchi, stridor Cardiovascular Exam: Present: regular rate, normal rhythm, normal heart sounds. Absent: systolic murmur, diastolic murmur, rubs, gallop, clicks GI/Abdominal exam: Present: soft, normal bowel sounds. Absent: distended, tenderness, guarding, rebound, rigid, bruit, pulsatile mass Rectal exam: Present: deferred Extremities exam: Present: normal inspection, full ROM, normal capillary refill, other (Tenderness and pain on leg raise). Absent: tenderness, pedal edema, joint swelling, calf tenderness Back exam: Present: normal inspection, tenderness, muscle spasm, paraspinal tenderness, other (Tennis palpation of the left paraspinous musculature and left SI and gluteal musculature.). Absent: CVA tenderness (R), CVA tenderness (L), vertebral tenderness Neurological exam: Present: alert, oriented X3, CN II-XII intact Psychiatric exam: Present: normal affect, normal mood Skin exam: Present: warm, dry, intact, normal color. Absent: rash Course Vital Signs 11/16/18 08:34 Temperature 98.5 F Pulse Rate 68 Respiratory 18 Rate Blood Pressure 165/95 O2 Sat by Pulse 100 Oximetry - Reevaluation(s) Reevaluation #1: 11/16/18 10:53 Patient didn't initially get some improvement with her pain is having recurrent pain at this time. Medical Decision Making - Medical Decision Making Patient is feeling improved after the last round of pain medication. I did discuss the findings with her through an glass pulverizer equipment operator who is her daughter who is present. I did review the imaging with Dr. Flores no acute findings are seen. Lab work was reviewed from yesterday nothing significant. Patient is showing improved the presentation is consistent with lumbar strain/sciatica. Patient will be placed on appropriate medication. She is a follow-up with her doctor Dr. Gallardo and return when necessary Disposition Clinical Impression: Sciatica of left side, Musculoskeletal pain Disposition: HOME SELF-CARE Condition: Good Instructions (If sedation given, give patient instructions): Sciatica (ED), Lower Back Exercises (ED), Musculoskeletal Pain (ED) Prescriptions: Ibuprofen 800 mg PO Q6HR PRN #20 tablet PRN Reason: Pain Orphenadrine [Norflex] 100 mg PO Q12H #7 tablet.er predniSONE 20 mg PO BID #10 tab Is patient prescribed a controlled substance at d/c from ED?: No Referrals: Nancy Gallardo DO [Primary Care Provider] - 1-2 days
[2018-11-16] MEDS ORDERED: fentaNYL (PF) 50 MCG/ML 2 ML AMP IV STA (10:51)
[2018-11-16 11:43] VITALS: BP 147/92; PULSE 62
== END 2018-11-16 11:45 | disposition home or self-care (01) ==
LOC: EC 08:31
DX: M54.42 Lumbago with sciatica, left side (principal); R10.32 Left lower quadrant pain; K21.9 Gastro-esophageal reflux disease without esophagitis; F32.9 Major depressive disorder, single episode, unspecified; F41.9 Anxiety disorder, unspecified; Z79.890 Hormone replacement therapy; Z79.899 Other long term (current) drug therapy; Z90.49 Acquired absence of other specified parts of digestive tract
CPT/HCPCS: 99284; 96374; 96375 ×3; 96376; J2060; J2930; J3010; J1885

== ENCOUNTER 2020-08-07 20:49 | Observation (INO) | payer OTHER ==
--- NOTE | 2020-08-07 21:22 | ED ---
Chest Pain HPI - General Chief Complaint: Chest Pain Stated Complaint: Chest Pain, High BP, Arm Numbness Time Seen by Provider: 08/07/20 21:03 Source: patient Mode of arrival: ambulatory Limitations: no limitations - History of Present Illness Initial Comments: This is a 49-year-old female DF for evaluation patient Dese for evaluation of chest pain for 3 days some anxiety and increased blood pressure blood pressure continues to increase more she checks her blood pressure. She has had shortness of breath she has a diaphoresis she had had weakness, has also noticed fatigue MD Complaint: chest pain -: days(s) (3) Onset: during exertion Pain Location: substernal Pain Radiation: LUE Severity: moderate Severity scale (1-10): 4 Quality: heaviness Consistency: constant Improves With: nothing Worsens With: nothing Anginal Symptoms: diaphoresis, dyspnea Other Symptoms: palpitations Treatments Prior to Arrival: none - Related Data Home Medications Medication Instructions Recorded Confirmed Levothyroxine Sodium [Synthroid] 50 mcg PO DAILY 02/16/18 08/07/20 FLUoxetine HCL [PROzac] 20 mg PO DAILY PRN 05/15/18 08/07/20 Esomeprazole Magnesium 40 mg PO DAILY 08/07/20 08/07/20 Losartan/Hydrochlorothiazide 1 tab PO DAILY 08/07/20 08/07/20 [Losartan-Hctz 100-25 mg Tab] Rumoquin Nf (Unknown Strength) 1 tab PO DAILY 08/07/20 08/07/20 Allergies Allergy/AdvReac Type Severity Reaction Status Date / Time No Known Allergies Allergy Verified 08/07/20 23:42 Review of Systems ROS Statement: Those systems with pertinent positive or pertinent negative responses have been documented in the HPI. ROS Other: All systems not noted in ROS Statement are negative. EKG Findings - EKG Comments: EKG Findings:: EKG is sinus rhythm 75. NC 124 QRS 80 QTC 451 Past Medical History Past Medical History: GERD/Reflux, Osteoarthritis (OA) Additional Past Medical History / Comment(s): CURRENTLY HAVING STOMACH PAIN.HX. GASTRITIS History of Any Multi-Drug Resistant Organisms: None Reported Past Surgical History: Cholecystectomy, Tubal Ligation Additional Past Surgical History / Comment(s): EGD & COLONOSCOPY, Afsaneh fundoplication Past Anesthesia/Blood Transfusion Reactions: No Reported Reaction Past Psychological History: Anxiety, Depression Smoking Status: Never smoker Past Alcohol Use History: None Reported Past Drug Use History: None Reported - Past Family History Mother Family Medical History: No Reported History Father Family Medical History: Myocardial Infarction ([place]) Additional Family Medical History / Comment(s): Patient has 2 brothers that are healthy and 5 sisters that are healthy. Patient has 2 sons and 2 daughters that are healthy with no major medical problems. General Exam Limitations: no limitations General appearance: alert, in no apparent distress, anxious Head exam: Present: atraumatic, normocephalic, normal inspection Eye exam: Present: normal appearance, PERRL, EOMI. Absent: scleral icterus, conjunctival injection, periorbital swelling ENT exam: Present: normal exam, mucous membranes moist Neck exam: Present: normal inspection. Absent: tenderness, meningismus, lymphadenopathy Respiratory exam: Present: normal lung sounds bilaterally. Absent: respiratory distress, wheezes, rales, rhonchi, stridor Cardiovascular Exam: Present: regular rate, normal rhythm, normal heart sounds. Absent: systolic murmur, diastolic murmur, rubs, gallop, clicks GI/Abdominal exam: Present: soft, normal bowel sounds. Absent: distended, tenderness, guarding, rebound, rigid Extremities exam: Present: normal inspection, full ROM, normal capillary refill. Absent: tenderness, pedal edema, joint swelling, calf tenderness Back exam: Present: normal inspection Neurological exam: Present: alert, oriented X3, CN II-XII intact Psychiatric exam: Present: normal affect, normal mood Skin exam: Present: warm, dry, intact, normal color. Absent: rash Course Vital Signs 08/07/20 08/07/20 08/07/20 20:55 22:30 22:45 Temperature 98.9 F Pulse Rate 82 66 64 Respiratory 18 20 20 Rate Blood Pressure 220/114 176/92 174/97 O2 Sat by Pulse 99 98 99 Oximetry 08/08/20 08/08/20 08/08/20 00:04 00:47 02:46 Temperature 98.4 F 98.2 F Pulse Rate 65 67 67 Respiratory 17 16 16 Rate Blood Pressure 174/90 161/95 148/92 O2 Sat by Pulse 98 96 100 Oximetry - Reevaluation(s) Reevaluation #1: 08/07/20 22:33 medical record is reviewed Reevaluation #2: 11/27/20 22:33 pain and BP and anxiety are improved Reevaluation #3: 08/07/20 22:33 Spoke with patient and son is transiting at bedside, informed of results, questions are answered chest pain is improved again with blood pressure control Chest Pain MDM - MDM 49 female to the ERF for chest pain. Blood pressure is not well-controlled and patient can be discharged Critical Care Time Critical Care Time: Yes Total Critical Care Time: 31 Disposition Clinical Impression: Chest pain, Hypertensive emergency Disposition: ADMITTED IP TO THIS HOSP Condition: Fair Is patient prescribed a controlled substance at d/c from ED?: No
[2020-08-07] MEDS ORDERED: NITROGLYCERIN SL TABS 0.4 MG TAB SUBLINGUAL PRN (21:41)
[2020-08-07] MEDS ORDERED: ASPIRIN 81 MG PO STA (21:41)
[2020-08-07] MEDS ORDERED: LABETALOL 5 MG/ML VIAL MDV IVP STA (21:41)
--- NOTE | 2020-08-07 22:01 | XR ---
EXAMINATION TYPE: XR chest 2V DATE OF EXAM: 08/07/2020 COMPARISON: NONE HISTORY: Weakness TECHNIQUE: 2 views FINDINGS: Heart and mediastinum are normal. Lungs are clear. Diaphragm is normal. Bony thorax appears normal. IMPRESSION: Normal chest.
[2020-08-07 22:11] LABS: Basophils # (A) 0.1 k/uL (0-0.2); Basophils % (A) 1 %; Eosinophils # (A) 0.3 k/uL (0-0.7); Eosinophils % (A) 4 %; HCT 38.7 % (34.0-46.0); HGB 13.6 gm/dL (11.4-16.0); Lymphocytes # (A) 2.2 k/uL (1.0-4.8); Lymphocytes % (A) 29 %; MCH 29.7 pg (25.0-35.0); MCHC 35.2 g/dL (31.0-37.0); MCV 84.5 fL (80.0-100.0); Mean Platelet Volume 8.5; Monocytes # (A) 0.4 k/uL (0-1.0); Monocytes % (A) 5 %; Neutrophils # (A) 4.5 k/uL (1.3-7.7); Neutrophils % (A) 59 %; Platelet Count 266 k/uL (150-450); RBC 4.57 m/uL (3.80-5.40); RDW 12.2 % (11.5-15.5); WBC 7.6 k/uL (3.8-10.6)
[2020-08-07 22:23] LABS: Albumin 4.4 g/dL (3.5-5.0); Calcium 9.4 mg/dL (8.4-10.2); INR 0.9 (<1.2); Partial Thromboplastin Time 29.5 sec (22.0-30.0); Potassium 3.3 mmol/L (3.5-5.1); Prothrombin Time 9.9 sec (9.0-12.0); Total Bilirubin 0.5 mg/dL (0.2-1.3); Total Protein 8.4 g/dL (6.3-8.2)
--- NOTE | 2020-08-07 22:32 | CT ---
EXAMINATION TYPE: CT angio chest DATE OF EXAM: 08/07/2020 COMPARISON: None HISTORY: Chest pain elevated BP CT DLP: 230.10 mGycm Automated exposure control for dose reduction was used. CONTRAST: Performed with IV Contrast, patient injected with 100 mL of Isovue 370. There are 3-D post processed images. The lungs are clear of consolidation. There is no evidence of a pulmonary mass. There is no pleural e ffusion. There is no pericardial effusion. Heart size is fairly normal. There is no mediastinal adenopathy. There are no hilar masses. There is intact thoracic aorta. There is no aneurysm or dissection. The ascending aorta measures 2.9 cm. There is normal contrast opacification of the pulmonary arteries. There are no filling defects. The bony thorax is intact. Sternum is intact. IMPRESSION: Negative exam. No evidence of pulmonary embolism.
[2020-08-07] MEDS: SODIUM CHLORIDE 0.9% 1,000 ML IV SCH (22:59)
[2020-08-08] MEDS: ACETAMINOPHEN TAB 500 MG TAB PO PRN ×3 (04:30→20:39)
[2020-08-08] MEDS: SODIUM CHLORIDE 0.9% 1,000 ML IV SCH (04:37)
[2020-08-08 06:31] LABS: Cholesterol 225 mg/dL (<200); HDL Cholesterol 57 mg/dL (40-60); LDL Cholesterol,Calculated 140 mg/dL (0-99); Triglycerides 140 mg/dL (<150)
[2020-08-08] MEDS: LEVOTHYROXINE 50 MCG TAB PO SCH (06:38)
[2020-08-08] MEDS ORDERED: ASPIRIN 325 MG TAB PO SCH (09:00)
[2020-08-08] MEDS ORDERED: [UNRECOGNIZED DRUG - OTHER] PO SCH (09:00)
[2020-08-08] MEDS: LOSARTAN-HCTZ 50-12.5 MG 1 EACH TAB PO SCH (09:41)
[2020-08-08] MEDS: PANTOPRAZOLE 40 MG TABLET PO SCH (09:41)
[2020-08-08] MEDS: FLUoxetine HCL 20 MG CAP PO PRN ×2 (09:48→22:45)
--- NOTE | 2020-08-08 11:11 | CONS ---
CONSULTATION HISTORY: Mrs. Morrison is a 49-year-old female, known history of hypertension, who presented with elevated blood pressure and anxiety. The history is obtained from her son, the patient speaks Divehi and little [place]ian. She has a history of hypertension but has been checking her blood pressure and it has been elevated. She got anxious about it and mildly dyspneic and came into the emergency room. She had no associated chest discomfort. She is usually active physically without any difficulty. She has no prior cardiac history. She has no significant peripheral edema. No PND. No orthopnea. She has some dizziness but no palpitation or syncope. No prior cardiac workup. Her coronary risk factors are remarkable for hypertension. She is nonsmoker, nondiabetic. She has hyperlipidemia. MEDICATIONS: At home included losartan HCT 100/25 mg daily, fluoxetine, Synthroid. REVIEW OF SYSTEMS: RESPIRATORY SYSTEM: She has no recent wheezing. No cough. No documented obstructive lung disease. GI SYSTEM: No recent GI bleeding. No peptic ulcer disease. SYSTEM: No dysuria or hematuria. NERVOUS SYSTEM: No stroke or seizure. PHYSICAL EXAMINATION: A 49-year-old female, alert, oriented, in no apparent distress. Blood pressure running in the 120s with a heart rate in the 60s. HEAD: Normocephalic. Eyes sclerae anicteric. NECK: Good carotid upstroke. No bruit, no jugular venous distention. LUNGS: Clear to auscultation. HEART: Regular rate and rhythm. S1, S2. No S3. No S4. No murmur or rub. ABDOMEN: Soft, nontender. Positive bowel sounds. No organomegaly. EXTREMITIES: No edema. Intact pulses. LAB DATA: Revealed troponin less than 0.012 for 3 samples. Potassium of 3.3. NT proBNP of 43. Cholesterol 225, LDL 140. Hemoglobin of 13.6. Chest x-ray revealed no acute infiltrate. A CT angiogram of the chest revealed no pulmonary embolism. The EKG reveals sinus mechanism, normal axis, intervals, QS in leads 3 with evidence of left ventricular hypertrophy. IMPRESSION: 1. Hypertension, under better control now with the same medication she was on, she was quite hypertensive on presentation. 2. Dizziness with no evidence of arrhythmia. 3. Hyperlipidemia. RECOMMENDATIONS: I will replace her potassium. I will add a statin to her regimen. Will obtain echocardiogram with Doppler to evaluate left ventricular systolic function. Increase her level activity. Depending on her progress, further recommendations will be made. I will add a low-dose of a calcium channel lance to improve her blood pressure control. Thank you for this consult. We will follow with you. MMAMYL / IJN: [id number] /
--- NOTE | 2020-08-08 12:00 | ECHOF ---
Referral Reason:cp MEASUREMENTS -------- HEIGHT: 165.1 cm WEIGHT: 62.6 kg BP: IVSd: 1.3 cm (0.6 - 1.1) LVIDd: 2.7 cm (3.9 - 5.3) LVPWd: 1.4 cm (0.6 - 1.1) EDV(Teich): 26 ml IVSs: 1.6 cm LVIDs: 1.4 cm LVPWs: 1.7 cm %IVS Thck: 25 % ESV(Teich): 5 ml EF(Teich): 79 % %FS: 46 % SV(Teich): 21 ml IVC: 8.76 mm LALs A4C: 3.8 cm LAAs A4C: 9.1 cm LAESV A-L A4C: 19 ml LAESV MOD A4C: 17 ml LALs A2C: 4.3 cm LAAs A2C: 10.8 cm LAESV A-L A2C: 23 ml LAESV MOD A2C: 21 ml LAESV(A-L): 22 ml LAESV Index (A-L): 13.01 ml/m Ao Diam: 2.6 cm (2.0 - 3.7) LA Diam: 2.7 cm (2.7 - 3.8) AV Cusp: 1.5 cm (1.5 - 2.6) EPSS: 0.4 cm MV E Bao: 0.51 m/s MV DecT: 220 ms MV Dec [place]: 2.3 m/s MV A [place]ao: 0.65 m/s MV E/A Ratio: 0.78 MV PHT: 64 ms MR Vmax: 1.66 m/s MR maxP.07 mmHg AV Vmax: 1.09 m/s AV maxP.79 mmHg TR Vmax: 1.98 m/s TR maxP.73 mmHg RAP: 5.00 mmHg RVSP: 20.73 mmHg MV EF SLOPE: 68.51 mm/s (70 - 150) MV EXCURSION: 13.97 mm (> 18.000) FINDINGS -------- This was a technically good study. The left ventricular size is normal. There is mild concentric left ventricular hypertrophy. Overa ll left ventricular systolic function is normal with, an EF between 55 - 60 %. The diastolic fillin g pattern is normal for the age of the patient 12.81. The right ventricle is normal in size. The left atrial size is normal. Normal LA size by volume 22+/-6 ml/m2. The right atrial size is normal. The aortic valve is trileaflet and appears structurally normal. The mitral valve is normal. There is trace mitral regurgitation. The tricuspid valve appears structurally normal. Trace tricuspid regurgitation present. Right jazmin tricular systolic pressure is normal at < 35 mmHg. There is no pulmonic regurgitation present. The aortic root size is normal. Normal inferior vena cava with normal inspiratory collapse consistent with estimated right atrial pre ssure of 5 mmHg. There is no pericardial effusion. CONCLUSIONS -------- 1. The left ventricular size is normal. 2. There is mild concentric left ventricular hypertrophy. 3. Overall left ventricular systolic function is normal with, an EF between 55 - 60 %. 4. The diastolic filling pattern is normal for the age of the patient 12.81 5. There is trace mitral regurgitation. 6. Trace tricuspid regurgitation present. 7. There is no pericardial effusion. CABLE SPLICER APPRENTICE: Janeth Schmidt RDCS
[2020-08-08] MEDS: amLODIPine 2.5 MG TAB PO SCH (12:16)
[2020-08-08] MEDS: ATORVASTATIN 40 MG TAB PO SCH (12:16)
--- NOTE | 2020-08-08 17:30 | P.HPIM ---
History of Present Illness H&P Date: 08/08/20 Chief Complaint: Chest pain This is a 49-year-old [place] lady with no cardiac history, patient of Dr. Corral no history of diabetes or hypertension, known history of GERD and gastritis as well as prior cholecystectomy, and lap Afsaneh fundoplication, admitted to emergency room secondary to chest pain for the past 3 days. She is also worried that the blood pressure is more elevated at home, she is not on any antihypertensives, she has shortness of breath occasionally, with some weakness, and fatigue. Patient denies any cough no fever no chills, chest pain is descri bed as chest heaviness, which is constant 4 out of 10, radiating to the left arm. Patient is seen in the observation floor today, with no chest pain.. Patient has hyperlipidemia, not on any statin, and she is a nonsmoker, no history of dye BPs mellitus no history of DVT, Emergency room troponins are negative 3.012, LDL is 114 lipase normal 251, potassium low at 3.3, creatinine 0.94, glucose of 112, liver function tests normal, INR of 0.9, no leukocytosis CTA of the chest, shows negative exam no PE EKG shows normal sinus rhythm with arm minimal voltage first year for LVH, and. Infarct age undetermined patient was seen consultation by cardiology, EF on echocardiogram was 55-60%, no wall motion abnormality, with mild concentric LVH, normal aortic stenosis, right ventricular systolic pressure 135, no pericardial effusion Review of Systems Constitutional: Reports as per HPI, Denies anorexia, Denies chills, Denies chronic headaches, Denies chronic pain, Denies daytime sleepiness, Denies fatigue, Denies fever, Denies lethargy, Denies malaise, Denies night sweats, Denies poor appetite, Denies sweats, Denies weakness, Denies weight gain, Denies weight loss Ears, nose, mouth and throat: Denies as per HPI, Denies ant. neck pain, Denies bleeding gums, Denies dental pain, Denies dysphagia, Denies epistaxis, Denies headache, Denies hoarseness, Denies mouth pain, Denies nasal congestion, Denies nasal discharge, Denies neck fullness/pressure, Denies neck lump, Denies nose pain, Denies odynophagia, Denies post-nasal drip, Denies sinus pain, Denies sinus pressure, Denies swelling in mouth, Denies swelling in throat, Denies sore throat, Denies vertigo, Denies voice changes Cardiovascular: Reports as per HPI, Reports chest pain, Denies claudication, Denies decreased exercise tolerance, Denies dyspnea on exertion, Denies edema, Denies high blood pressure, Denies irregular heart beat, Denies leg edema, Denies lightheadedness, Denies orthopnea, Denies palpitations, Denies paroxysmal nocturnal dyspnea, Denies phlebitis, Denies rapid heart beat, Denies shortness of breath, Denies syncope Respiratory: Reports as per HPI, Denies congestion, Denies cough, Denies cough w ith sputum, Denies dyspnea, Denies excessive sputum, Denies hemoptysis, Denies home oxygen, Denies pain, Denies pain on inspiration, Denies pleurisy, Denies respiratory infections, Denies sleep apnea, Denies snoring, Denies wheezing Gastrointestinal: Reports as per HPI Genitourinary: Reports as per HPI, Denies abnormal vaginal bleeding, Denies decr eased libido, Denies difficulty conceiving, Denies difficulty voiding, Denies dysmenorrhea, Denies dyspareunia, Denies dysuria, Denies flank pain, Denies genital sores, Denies hematuria, Denies hot flashes, Denies incomplete emptying, Denies kidney stones, Denies menorrhagia, Denies mixed incontinence, Denies nocturia, Denies pelvic pain, Denies post void dribbling, Denies , Denies prolapse symptoms, Denies stress incontinence, Denies urge incontinence, Denies urgency, Denies urinary frequency, Denies vaginal discharge, Denies vaginal dryness, Denies vaginal itching, Denies vaginal odor Menstruation: Reports as per HPI, Denies amenorrhea, Denies amenorrhea on BC, Denies currently menstrual, Denies cycle < 21 days, Denies cycle > 35 days, Denies cycle variable, Denies menses 1-7 days, Denies menses 8 or > days, Denies menses variable, Denies period heavy, Denies period light, Denies period normal, Denies period spotting, Denies post hysterectomy, Denies postmenopausal, Denies premenarcheal Musculoskeletal: Reports as per HPI, Denies arm numbness/tingling, Denies atrophy, Denies fractures, Denies frequent falls, Denies gait dysfunction, Denies hot joints, Denies leg numbness/tingling, Denies limitation of motion, Denies loss of height, Denies low back pain, Denies morning stiffness, Denies muscle cramps, Denies muscle weakness, Denies myalgias, Denies neck pain, Denies neck stiffness, Denies prior amputations, Denies redness of joints, Denies shooting arm pain, Denies shooting leg pain Integumentary: Reports as per HPI, Denies acne, Denies boils, Denies brittle nails, Denies change in hair/nails, Denies color changes, Denies darkening of skin, Denies depigmentation, Denies dryness, Denies foot/leg ulcers, Denies growths, Denies hirsutism, Denies lesions, Denies onychomycosis, Denies pruri tus, Denies rash, Denies sores, Denies striae, Denies unusual bruising, Denies wounds Neurological: Reports as per HPI, Denies aphasia, Denies ataxia, Denies balance difficulties, Denies burning pain, Denies change in mentation, Denies change in smell/taste, Denies change in speech, Denies confusion, Denies convulsions, Denies double vision, Denies gait dysfunction, Denies head injury, Denies headaches, Denies hearing difficulties, Denies lack of coordination, Denies loss of vision, Denies memory loss, Denies migraines, Denies motor disturbance, Denies numbness, Denies paralysis, Denies paresthesias, Denies seizures, Denies sensory deficit, Denies spasticity, Denies syncope, Denies tic, Denies tingling, Denies transient paralysis, Denies tremors, Denies vertigo, Denies weakness, Denies visual changes Psychiatric: Reports as per HPI, Denies anhedonia, Denies anxiety, Denies anxiety attacks, Denies change in appetite, Denies change in libido, Denies change in sleep habits, Denies confusion, Denies depression, Denies difficulty concentrating, Denies disorientation, Denies hallucinations, Denies hopelessness, Denies hypersomnia, Denies insomnia, Denies irritability, Denies memory loss, Denies mood swings, Denies paranoia, Denies sadness/tearfulness, Denies sleep disturbances, Denies suicidal ideation Endocrine: Reports as per HPI Hematologic/Lymphatic: Reports as per HPI Allergic/Immunologic: Reports as per HPI Past Medical History Past Medical History: GERD/Reflux, Osteoarthritis (OA) Additional Past Medical History / Comment(s): CURRENTLY HAVING STOMACH PAIN.HX. GASTRITIS History of Any Multi-Drug Resistant Organisms: None Reported Past Surgical History: Cholecystectomy, Tubal Ligation Additional Past Surgical History / Comment(s): EGD & COLONOSCOPY, Afsaneh fundoplication Past Anesthesia/Blood Transfusion Reactions: No Reported Reaction Past Psychological History: Anxiety, Depression Smoking Status: Never smoker Past Alcohol Use History: None Reported Additional Past Alcohol Use History / Comment(s): Patient is a lifelong nonsmoker. She drinks alcohol on a very rare basis. Past Drug Use History: None Reported - Past Family History Mother Family Medical History: No Reported History Father Family Medical History: Myocardial Infarction ([place]) Additional Family Medical History / Comment(s): Patient has 2 brothers that are healthy and 5 sisters that are healthy. Patient has 2 sons and 2 daughters that are healthy with no major medical problems. Medications and Allergies Home Medications Medication Instructions Recorded Confirmed Type Levothyroxine Sodium [Synthroid] 50 mcg PO DAILY 02/16/18 08/07/20 History FLUoxetine HCL [PROzac] 20 mg PO DAILY PRN 05/15/18 08/07/20 History Esomeprazole Magnesium 40 mg PO DAILY 08/07/20 08/07/20 History Losartan/Hydrochlorothiazide 1 tab PO DAILY 08/07/20 08/07/20 History [Losartan-Hctz 100-25 mg Tab] Rumoquin Nf (Unknown Strength) 1 tab PO DAILY 08/07/20 08/07/20 History Allergies Allergy/AdvReac Type Severity Reaction Status Date / Time No Known Allergies Allergy Verified 08/07/20 23:42 Physical Exam Vitals: Vital Signs Temp Pulse Pulse Resp BP BP Pulse Ox 08/08/20 08:49 97.6 F 60 16 128/83 99 08/08/20 03:00 97.5 F L 63 16 149/95 97 08/08/20 02:46 98.2 F 67 16 148/92 100 08/08/20 00:47 98.4 F 67 16 161/95 96 08/08/20 00:04 65 17 174/90 98 08/07/20 22:45 64 20 174/97 99 08/07/20 22:30 66 20 176/92 98 08/07/20 20:55 98.9 F 82 18 220/114 99 Intake and Output 08/07/20 08/08/20 08/08/20 22:59 06:59 14:59 Other: Voiding Method Toilet Toilet # Voids 1 Weight 62.596 kg 62.596 kg - Constitutional General appearance: cooperative, no acute distress - EENT Eyes: anicteric sclerae, PERRLA, dentition normal ENT: NA/AT, normal oropharynx - Neck Neck: normal ROM - Respiratory Respiratory: bilateral: CTA, negative: diminished, dullness - Cardiovascular Rhythm: regular Heart sounds: normal: S1, S2 - Integumentary Integumentary: decreased turgor, normal - Neurologic Neurologic: CNII-XII intact - Musculoskeletal Musculoskeletal: gait normal, strength equal bilaterally - Psychiatric Psychiatric: A&O x's 3, appropriate affect, intact judgment & insight Results CBC & Chem 7: 08/07/20 22:00 08/08/20 14:16 Labs: Abnormal Lab Results - Last 24 Hours (Table) 08/07/20 08/08/20 Range/Units 22:00 04:49 Sodium 131 L (137-145) mmol/L Potassium 3.3 L (3.5-5.1) mmol/L Chloride 96 L (98-107) mmol/L Glucose 112 H (74-99) mg/dL Total Protein 8.4 H (6.3-8.2) g/dL Cholesterol 225 H (<200) mg/dL LDL Cholesterol, Calc 140 H (0-99) mg/dL Laboratory Results WBC 7.6 k/uL (3.8-10.6) 08/07/20 22:00 RBC 4.57 m/uL (3.80-5.40) 08/07/20 22:00 Hgb 13.6 gm/dL (11.4-16.0) 08/07/20 22:00 Hct 38.7 % (34.0-46.0) 08/07/20 22:00 MCV 84.5 fL (80.0-100.0) 08/07/20 22:00 MCH 29.7 pg (25.0-35.0) 08/07/20 22:00 MCHC 35.2 g/dL (31.0-37.0) 08/07/20 22:00 RDW 12.2 % (11.5-15.5) 08/07/20 22:00 Plt Count 266 k/uL (150-450) 08/07/20 22:00 MPV 8.5 08/07/20 22:00 Neutrophils % 59 % 08/07/20 22:00 Lymphocytes % 29 % 08/07/20 22:00 Monocytes % 5 % 08/07/20 22:00 Eosinophils % 4 % 08/07/20 22:00 Basophils % 1 % 08/07/20 22:00 Neutrophils # 4.5 k/uL (1.3-7.7) 08/07/20 22:00 Lymphocytes # 2.2 k/uL (1.0-4.8) 08/07/20 22:00 Monocytes # 0.4 k/uL (0-1.0) 08/07/20 22:00 Eosinophils # 0.3 k/uL (0-0.7) 08/07/20 22:00 Basophils # 0.1 k/uL (0-0.2) 08/07/20 22:00 PT 9.9 sec (9.0-12.0) 08/07/20 22:00 INR 0.9 (<1.2) 08/07/20 22:00 APTT 29.5 sec (22.0-30.0) 08/07/20 22:00 Sodium 131 mmol/L (137-145) L 08/07/20 22:00 Potassium 4.1 mmol/L (3.5-5.1) 08/08/20 14:16 Chloride 96 mmol/L (98-107) L 08/07/20 22:00 Carbon Dioxide 27 mmol/L (22-30) 08/07/20 22:00 Anion Gap 8 mmol/L 08/07/20 22:00 BUN 14 mg/dL (7-17) 08/07/20 22:00 Creatinine 0.94 mg/dL (0.52-1.04) 08/07/20 22:00 Est GFR (CKD-EPI)AfAm 81 (>60 ml/min/1.73 sqM) 08/07/20 22:00 Est GFR (CKD-EPI)NonAf 71 (>60 ml/min/1.73 sqM) 08/07/20 22:00 Glucose 112 mg/dL (74-99) H 08/07/20 22:00 Calcium 9.4 mg/dL (8.4-10.2) 08/07/20 22:00 Magnesium 2.0 mg/dL (1.6-2.3) 08/07/20 22:00 Total Bilirubin 0.5 mg/dL (0.2-1.3) 08/07/20 22:00 AST 29 U/L (14-36) 08/07/20 22:00 ALT 22 U/L (4-34) 08/07/20 22:00 Alkaline Phosphatase 101 U/L (38-126) 08/07/20 22:00 Troponin I <0.012 ng/mL (0.000-0.034) 08/08/20 04:49 NT-Pro-B Natriuret Pep 43 pg/mL 08/07/20 22:00 Total Protein 8.4 g/dL (6.3-8.2) H 08/07/20 22:00 Albumin 4.4 g/dL (3.5-5.0) 08/07/20 22:00 Triglycerides 140 mg/dL (<150) 08/08/20 04:49 Cholesterol 225 mg/dL (<200) H 08/08/20 04:49 LDL Cholesterol, Calc 140 mg/dL (0-99) H 08/08/20 04:49 HDL Cholesterol 57 mg/dL (40-60) 08/08/20 04:49 Lipase 251 U/L (23-300) 08/07/20 22:00 Thrombosis Risk Factor Assmnt - Choose All That Apply Each Factor Represents 1 point: Age 41-60 years Thrombosis Risk Factor Assessment Total Risk Factor Score: 1 Thrombosis Risk Factor Assessment Level: Low Risk Assessment and Plan Plan: 1. Chest pain with uncontrolled hypertension, suspect hypertensive urgency, patient has blood pressure under control, patient will be seen in consultation by cardiology, and will be started on a calcium channel lance aspirin and a statin. CTAs rebuild any PE troponins 3 are negative. Cardiology to decide on the timing of the stress test, most likely to be done as an outpatient 2. Hyperlipidemia with LDL of 140 3. Electrolyte abnormality with hypokalemia 4. Chronic hypertension with evidence of LVH, antihypertensive medication in the form of calcium channel lance was started 5. Dizziness most likely related to urgent hypertension, no evidence of vestibulopathy 6. GI prophylaxis DVT prophylaxis
[2020-08-09] MEDS: LEVOTHYROXINE 50 MCG TAB PO SCH (06:07)
[2020-08-09] MEDS: PANTOPRAZOLE 40 MG TABLET PO SCH (08:10)
[2020-08-09] MEDS: ASPIRIN 81 MG PO SCH (08:10)
[2020-08-09] MEDS: ATORVASTATIN 40 MG TAB PO SCH ×2 (08:10→08:11)
[2020-08-09] MEDS: amLODIPine 2.5 MG TAB PO SCH (08:11)
[2020-08-09] MEDS: LOSARTAN-HCTZ 50-12.5 MG 1 EACH TAB PO SCH (08:11)
[2020-08-09] MEDS ORDERED: MECLIZINE 25 MG TAB PO STA (10:00)
[2020-08-09] MEDS ORDERED: MECLIZINE 25 MG TAB PO PRN (10:00)
--- NOTE | 2020-08-09 10:05 | P.PN ---
Subjective Progress Note Date: 08/09/20 This is a 49-year-old [place] lady with no cardiac history, patient of Dr. Corral no history of diabetes or hypertension, known history of GERD and gastritis as well as prior cholecystectomy, and lap Afsaneh fundoplication, admitted to emergency room secondary to chest pain for the past 3 days. She is also worried that the blood pressure is more elevated at home, she is not on any antihypertensives, she has shortness of breath occasionally, with some weakness, and fatigue. Patient denies any cough no fever no chills, chest pain is described as chest heaviness, which is constant 4 out of 10, radiating to the left arm. Patient is seen in the observation floor today, with no chest pain.. Patient has hyperlipidemia, not on any statin, and she is a nonsmoker, no history of dye BPs mellitus no history of DVT, Emergency room troponins are negative 3.012, LDL is 114 lipase normal 251, potassium low at 3.3, creatinine 0.94, glucose of 112, liver function tests normal, INR of 0.9, no leukocytosis CTA of the chest, shows negative exam no PE EKG shows normal sinus rhythm with arm minimal voltage first year for LVH, and. Infarct age undetermined patient was seen consultation by cardiology, EF on echocardiogram was 55-60%, no wall motion abnormality, with mild concentric LVH, normal aortic stenosis, right ventricular systolic pressure 135, no pericardial effusion August 09: Patient feels vertiginous today, with position changes, patient denies any chest pain no cough no fever no chills, episodic maneuver is positive on both sides, we will check orthostatic hypotension, blood pressures 119 systolic, waiting final input from cardiology, for possible stress test either outpatient or inpatient. Start meclizine, and oral prednisone 40 mg. Review of Systems Constitutional: Reports as per HPI, Denies anorexia, Denies chills, Denies chronic headaches, Denies chronic pain, Denies daytime sleepiness, Denies fatigue, Denies fever, Denies lethargy, Denies malaise, Denies night sweats, Denies poor appetite, Denies sweats, Denies weakness, Denies weight gain, Denies weight loss Ears, nose, mouth and throat: Denies as per HPI, Denies ant. neck pain, Denies bleeding gums, Denies dental pain, Denies dysphagia, Denies epistaxis, Denies headache, Denies hoarseness, Denies mouth pain, Denies nasal congestion, Denies nasal discharge, Denies neck fullness/pressure, Denies neck lump, Denies nose pain, Denies odynophagia, Denies post-nasal drip, Denies sinus pain, Denies sinus pressure, Denies swelling in mouth, Denies swelling in throat, Denies sore throat, Denies vertigo, Denies voice changes Cardiovascular: Reports as per HPI, Reports chest pain, Denies claudication, Denies decreased exercise tolerance, Denies dyspnea on exertion, Denies edema, Denies high blood pressure, Denies irregular heart beat, Denies leg edema, Denies lightheadedness, Denies orthopnea, Denies palpitations, Denies paroxysmal nocturnal dyspnea, Denies phlebitis, Denies rapid heart beat, Denies shortness of breath, Denies syncope Respiratory: Reports as per HPI, Denies congestion, Denies cough, Denies cough with sputum, Denies dyspnea, Denies excessive sputum, Denies hemoptysis, Denies home oxygen, Denies pain, Denies pain on inspiration, Denies pleurisy, Denies respiratory infections, Denies sleep apnea, Denies snoring, Denies wheezing Gastrointestinal: Reports as per HPI Genitourinary: Reports as per HPI, Denies abnormal vaginal bleeding, Denies decreased libido, Denies difficulty conceiving, Denies difficulty voiding, Den ies dysmenorrhea, Denies dyspareunia, Denies dysuria, Denies flank pain, Denies genital sores, Denies hematuria, Denies hot flashes, Denies incomplete emptying, Denies kidney stones, Denies menorrhagia, Denies mixed incontinence, Denies nocturia, Denies pelvic pain, Denies post void dribbling, Denies , Denies prolapse symptoms, Denies stress incontinence, Denies urge incontinence, Denies urgency, Denies urinary frequency, Denies vaginal discharge, Denies vaginal dryness, Denies vaginal itching, Denies vaginal odor Menstruation: Reports as per HPI, Denies amenorrhea, Denies amenorrhea on BC, Denies currently menstrual, Denies cycle < 21 days, Denies cycle > 35 days, Denies cycle variable, Denies menses 1-7 days, Denies menses 8 or > days, Denies menses variable, Denies period heavy, Denies period light, Denies period normal, Denies period spotting, Denies post hysterectomy, Denies postmenopausal, Denies premenarcheal Musculoskeletal: Reports as per HPI, Denies arm numbness/tingling, Denies atrophy, Denies fractures, Denies frequent falls, Denies gait dysfunction, Denies hot joints, Denies leg numbness/tingling, Denies limitation of motion, Denies loss of height, Denies low back pain, Denies morning stiffness, Denies muscle cramps, Denies muscle weakness, Denies myalgias, Denies neck pain, Denies neck stiffness, Denies prior amputations, Denies redness of joints, Denies shooting arm pain, Denies shooting leg pain Integumentary: Reports as per HPI, Denies acne, Denies boils, Denies brittle nails, Denies change in hair/nails, Denies color changes, Denies darkening of skin, Denies depigmentation, Denies dryness, Denies foot/leg ulcers, Denies growths, Denies hirsutism, Denies lesions, Denies onychomycosis, Denies pruritus, Denies rash, Denies sores, Denies striae, Denies unusual bruising, De nies wounds Neurological: Reports as per HPI, Denies aphasia, Denies ataxia, Denies balance difficulties, Denies burning pain, Denies change in mentation, Denies change in smell/taste, Denies change in speech, Denies confusion, Denies convulsions, Denies double vision, Denies gait dysfunction, Denies head injury, Denies headaches, Denies hearing difficulties, Denies lack of coordination, Denies loss of vision, Denies memory loss, Denies migraines, Denies motor disturbance, Denies numbness, Denies paralysis, Denies paresthesias, Denies seizures, Denies sensory deficit, Denies spasticity, Denies syncope, Denies tic, Denies tingling, Denies transient paralysis, Denies tremors, Denies vertigo, Denies weakness, Denies visual changes Psychiatric: Reports as per HPI, Denies anhedonia, Denies anxiety, Denies anxiety attacks, Denies change in appetite, Denies change in libido, Denies change in sleep habits, Denies confusion, Denies depression, Denies difficulty concentrating, Denies disorientation, Denies hallucinations, Denies hopelessness, Denies hypersomnia, Denies insomnia, Denies irritability, Denies memory loss, Denies mood swings, Denies paranoia, Denies sadness/tearfulness, Denies sleep disturbances, Denies suicidal ideation Endocrine: Reports as per HPI Hematologic/Lymphatic: Reports as per HPI Allergic/Immunologic: Reports as per HPI Objective - Vital Signs Vital signs: Vital Signs Temp 97.7 F 08/09/20 08:07 Pulse 67 08/09/20 08:07 Resp 16 08/09/20 08:07 BP 119/82 08/09/20 08:07 Pulse Ox 97 08/09/20 08:07 Intake & Output 08/08/20 08/09/20 08/09/20 18:59 06:59 18:59 Intake Total 240 Balance 240 Intake: Oral 240 Other: Voiding Method Toilet Toilet # Voids 1 1 - Constitutional General appearance: Present: cooperative, no acute distress - EENT Eyes: Present: anicteric sclerae, PERRLA, normal appearance ENT: Present: hearing grossly normal, NA/AT, normal oropharynx - Neck Carotids: bilateral: upstroke normal, bruit absent - Respiratory Respiratory: bilateral: CTA - Cardiovascular Rhythm: regular Heart sounds: normal: S1, S2 Abnormal Heart Sounds: Absent: systolic murmur, diastolic murmur, rub, S3 Gallop, S4 Gallop, click, other - Gastrointestinal General gastrointestinal: Present: normal bowel sounds, soft - Neurologic Neurologic: Present: CNII-XII intact - Musculoskeletal Musculoskeletal: Present: gait normal, strength equal bilaterally - Psychiatric Psychiatric: Present: A&O x's 3 - Labs CBC & Chem 7: 08/07/20 22:00 08/08/20 14:16 Assessment and Plan Plan: 1. Chest pain with uncontrolled hypertension, suspect hypertensive urgency, patient has blood pressure under control, patient will be seen in consultation by cardiology, and will be started on a calcium channel lance aspirin and a statin. CTAs rebuild any PE troponins 3 are negative. Cardiology to decide on the timing of the stress test, most likely to be done as an outpatient 2. Vertigo, suspect benign positional vertigo, against vestibular neuronitis. Symptoms has been present prior to admission, start meclizine and prednisone, 2. Hyperlipidemia with LDL of 140 3. Electrolyte abnormality with hypokalemia 4. Chronic hypertension with evidence of LVH, antihypertensive medication in the form of calcium channel lance was started 5. Dizziness most likely related to urgent hypertension, no evidence of vestibulopathy 6. GI prophylaxis DVT prophylaxis
--- NOTE | 2020-08-09 10:50 | PN ---
PROGRESS NOTE Mrs. Morrison is a 49-year-old female who presented with symptoms of dizziness and elevated blood pressure. She continues to have some anxious feelings in the middle of the chest. She has no chest pain. Her dizziness is better. She denies any palpitation. No syncope. She denies any nausea. She underwent an echocardiogram yesterday that showed a normal left ventricular size and systolic function with trace mitral and tricuspid regurgitation. She continues to be at this time on aspirin once a day, Lipitor 40 mg daily, losartan HCT 100-25 mg daily and amlodipine 2.5 mg daily. PHYSICAL EXAMINATION: Blood pressure running in the 110s to 120s with a heart rate in the 60s. LUNGS: Clear. Heart regular rate and rhythm S1, S2. No S3. No rub. ABDOMEN: Soft, nontender. EXTREMITIES: No edema. Her potassium yesterday was 4.1. IMPRESSION: 1. Hypertension under better control. 2. Symptoms of dizziness, stable. 3. Hyperlipidemia. RECOMMENDATION: From the cardiac standpoint, she is stable. She may be able to be discharged home soon and follow up as an outpatient to see if further cardiac workup will be needed at that time. MMODL / IJN: [id number] /
[2020-08-09] MEDS: predniSONE 20 MG TAB PO SCH (11:05)
[2020-08-09] MEDS: ACETAMINOPHEN TAB 500 MG TAB PO PRN (19:16)
[2020-08-09] MEDS: SODIUM CHLORIDE 0.9% 1,000 ML IV SCH (21:50)
[2020-08-09] MEDS ORDERED: HYDROcodone/APAP 5-325MG 1 EACH TAB PO PRN (22:04)
[2020-08-09] MEDS: FLUoxetine HCL 20 MG CAP PO PRN (22:59)
[2020-08-10 03:13] VITALS: RESP 16
[2020-08-10 04:42] VITALS: PULSE 65
[2020-08-10] MEDS: LEVOTHYROXINE 50 MCG TAB PO SCH (07:04)
[2020-08-10 09:47] VITALS: BP 129/77; TEMP 97.6
--- NOTE | 2020-08-10 10:14 | P.DS ---
Providers Date of admission: 08/07/20 21:41 Expected date of discharge: 08/10/20 Attending physician: Rosalie Galvez Consults: 08/07/20 21:41 Consult Physician Urgent Consulting Provider: Donato Ness Consult Reason/Comments: cp Do you want consulting provider notified?: Yes Primary care physician: [facility] [place] Hospital Course: This is a 49-year-old [place] lady with no cardiac history, patient of Dr. Corral no history of diabetes or hypertension, known history of GERD and gastritis as well as prior cholecystectomy, and lap Afsaneh fundoplication, admitted to emergency room secondary to chest pain for the past 3 days. She is also worried that the blood pressure is more elevated at home, she is not on any antihypertensives, she has shortness of breath occasionally, with some weakness, and fatigue. Patient denies any cough no fever no chills, chest pain is described as chest heaviness, which is constant 4 out of 10, radiating to the left arm. Patient is seen in the observation floor today, with no chest pain.. Patient has hyperlipidemia, not on any statin, and she is a nonsmoker, no history of dye BPs mellitus no history of DVT, Emergency room troponins are negative 3.012, LDL is 114 lipase normal 251, potassium low at 3.3, creatinine 0.94, glucose of 112, liver function tests normal, INR of 0.9, no leukocytosis CTA of the chest, shows negative exam no PE EKG shows normal sinus rhythm with arm minimal voltage first year for LVH, and. Infarct age undetermined patient was seen consultation by cardiology, EF on echocardiogram was 55-60%, no wall motion abnormality, with mild concentric LVH, normal aortic stenosis, right ventricular systolic pressure 135, no pericardial effusion August 09: Patient feels vertiginous today, with position changes, patient denies any chest pain no cough no fever no chills, episodic maneuver is positive on both sides, we will check orthostatic hypotension, blood pressures 119 systolic, waiting final input from cardiology, for possible stress test either outpatient or inpatient. Start meclizine, and oral prednisone 40 mg. 08/10: Patient's blood pressure has been stable for more than 24 hours with curr ent medication changes. She denies having any chest pain, no shortness of breath, no nausea vomiting. No lower extremity edema. She also denies abdominal pain. She has been up and ambulating to the bathroom back to her bed without any symptoms. Patient is been cleared by cardiology for discharge home. Patient will be discharged home today in stable condition with planned follow- up with PCP and cardiology. DISCHARGE DIAGNOSES 1. Chest pain with uncontrolled hypertension, suspect hypertensive urgency 2. Vertigo, suspect benign positional vertigo, against vestibular neuronitis. 2. Hyperlipidemia with LDL of 140 3. Electrolyte abnormality with hypokalemia 4. Chronic hypertension with evidence of LVH 5. Dizziness most likely related to urgent hypertension Discharge plan: home Impression and plan of care have been directed as dictated by the signing physician. Zulma Yañez nurse practitioner acting as scribe for signing physician. Patient Condition at Discharge: Good Plan - Discharge Summary Discharge Rx Participant: No New Discharge Prescriptions: New Meclizine [Antivert] 25 mg PO TID PRN tab PRN Reason: Vertigo Aspirin 81 mg PO DAILY chew Atorvastatin [Lipitor] 40 mg PO DAILY #30 tab amLODIPine [Norvasc] 2.5 mg PO DAILY #30 tab Continue Levothyroxine Sodium [Synthroid] 50 mcg PO DAILY FLUoxetine HCL [PROzac] 20 mg PO DAILY PRN PRN Reason: Anxiety Losartan/Hydrochlorothiazide [Losartan-Hctz 100-25 mg Tab] 1 tab PO DAILY Esomeprazole Magnesium 40 mg PO DAILY Rumoquin Nf (Unknown Strength) 1 tab PO DAILY Discharge Medication List Levothyroxine Sodium [Synthroid] 50 mcg PO DAILY 02/16/18 [History] FLUoxetine HCL [PROzac] 20 mg PO DAILY PRN 05/15/18 [History] Esomeprazole Magnesium 40 mg PO DAILY 08/07/20 [History] Losartan/Hydrochlorothiazide [Losartan-Hctz 100-25 mg Tab] 1 tab PO DAILY 08/07/20 [History] Rumoquin Nf (Unknown Strength) 1 tab PO DAILY 08/07/20 [History] Aspirin 81 mg PO DAILY chew 08/10/20 [Rx] Atorvastatin [Lipitor] 40 mg PO DAILY #30 tab 08/10/20 [Rx] Meclizine [Antivert] 25 mg PO TID PRN tab 08/10/20 [Rx] amLODIPine [Norvasc] 2.5 mg PO DAILY #30 tab 08/10/20 [Rx] Follow up Appointment(s)/Referral(s): Donato Ness MD [STAFF PHYSICIAN] - 08/14/20 8:45 am (will be seen by KALYAN Singh) Alexander Corral DO [Primary Care Provider] - 1 Week (please call for follow up appointment) Discharge Disposition: HOME SELF-CARE
[2020-08-10] MEDS: LOSARTAN-HCTZ 50-12.5 MG 1 EACH TAB PO SCH (10:44)
[2020-08-10] MEDS: ASPIRIN 81 MG PO SCH (10:44)
[2020-08-10] MEDS: predniSONE 20 MG TAB PO SCH (10:44)
[2020-08-10] MEDS: PANTOPRAZOLE 40 MG TABLET PO SCH (10:44)
[2020-08-10] MEDS: amLODIPine 2.5 MG TAB PO SCH (10:45)
--- NOTE | 2020-08-10 11:24 | PN ---
PROGRESS NOTE Mrs. Morrison is a 49-year-old female who presented with dizziness and evidence of hypertension. She is feeling better this morning. She is ambulating without difficulty. She denies any dizziness, palpitation. She denies any nausea. Hemodynamically, she is stable. She continues to be on amlodipine 2.5 mg daily, aspirin once a day, Lipitor 40 mg daily, losartan HCT 100-25 mg daily in addition to Protonix. PHYSICAL EXAMINATION: Blood pressure 129/70 with a heart in the 60s. LUNGS: Clear. HEART: Regular rate and rhythm, S1, S2. No S3. No rub. ABDOMEN: Soft, nontender. EXTREMITIES: No edema. LAB DATA: Her LDL was 140. IMPRESSION: 1. Hypertension, controlled. 2. Dizziness, resolved. 3. Hyperlipidemia. RECOMMENDATION: She is stable from the cardiac standpoint to be discharged home today and she will follow up as an outpatient to see if further cardiac workup is needed. MMODL / IJN: [id number] /
== END 2020-08-10 13:18 | disposition home or self-care (01) ==
LOC: EC 20:49 → 1SOBS 21:41
PROVIDERS: ADMIT Family Medicine; ATTEND Family Medicine
DX: R07.89 Other chest pain (principal); I11.9 Hypertensive heart disease without heart failure; E87.6 Hypokalemia; F41.9 Anxiety disorder, unspecified; E78.5 Hyperlipidemia, unspecified; K21.9 Gastro-esophageal reflux disease without esophagitis; M19.90 Unspecified osteoarthritis, unspecified site; F32.9 Major depressive disorder, single episode, unspecified; R00.2 Palpitations; Z79.890 Hormone replacement therapy; Z79.899 Other long term (current) drug therapy; Z87.19 Personal history of other diseases of the digestive system; Z90.49 Acquired absence of other specified parts of digestive tract; Z98.51 Tubal ligation status; Z98.890 Other specified postprocedural states; Z82.49 Family history of ischemic heart disease and other diseases of the circulatory system
CPT/HCPCS: 93005 ×2; 99291; 93306; 83880; 80061; 80053; 83690; 83735; 84132; 84484 ×2; 85025; 85610; 85730; 71046; 71275; G0378 ×4; J7512 ×2; Q9967

== ENCOUNTER 2020-08-16 19:42 | Inpatient (IN) | payer OTHER ==
--- NOTE | 2020-08-16 20:22 | ED ---
General Adult HPI - General Chief complaint: Chest Pain Stated complaint: Chest pain Time Seen by Provider: 08/16/20 19:58 Source: patient, family, RN notes reviewed Mode of arrival: ambulatory Limitations: no limitations, language barrier - History of Present Illness Initial comments: Patient is a 49-year-old female with a past medical history of hypertension who presents to the emergency room for chest pain. Patient is Polish-speaking, her son is translating for her. Patient reports she has had chest pain on and off for the past week however this worsened today. She describes it as a pressure in the left side of her chest. States it worsens when she has anxiety. She denies shortness of breath. Patient was admitted one week ago for these symptoms and seen by cardiology. At that time an echocardiogram was performed which showed an ejection fraction between 55-60%. She was cleared by cardiology and had a scheduled appointment in office tomorrow. However when pain worsened today she became concerned and again presented to the emergency room. Patient had a CT of the chest performed on August 07 that showed a negative exam. No thoracic aorta abnormality. No pulmonary embolism. - Related Data Home Medications Medication Instructions Recorded Confirmed Levothyroxine Sodium [Synthroid] 50 mcg PO DAILY 02/16/18 08/16/20 FLUoxetine HCL [PROzac] 20 mg PO DAILY PRN 05/15/18 08/16/20 Esomeprazole Magnesium 40 mg PO DAILY 08/07/20 08/16/20 Losartan/Hydrochlorothiazide 1 tab PO DAILY 08/07/20 08/16/20 [Losartan-Hctz 100-25 mg Tab] Rumoquin Nf (Unknown Strength) 1 tab PO DAILY 08/07/20 08/16/20 Atorvastatin [Lipitor] 40 mg PO HS 08/16/20 08/16/20 Previous Rx's Medication Instructions Recorded Aspirin 81 mg PO DAILY chew 08/10/20 Meclizine [Antivert] 25 mg PO TID PRN tab 08/10/20 amLODIPine [Norvasc] 2.5 mg PO DAILY #30 tab 08/10/20 Allergies Allergy/AdvReac Type Severity Reaction Status Date / Time No Known Allergies Allergy Verified 08/16/20 22:17 Review of Systems ROS Statement: Those systems with pertinent positive or pertinent negative responses have been documented in the HPI. ROS Other: All systems not noted in ROS Statement are negative. Past Medical History Past Medical History: GERD/Reflux, Osteoarthritis (OA) Additional Past Medical History / Comment(s): CURRENTLY HAVING STOMACH PAIN.HX. GASTRITIS History of Any Multi-Drug Resistant Organisms: None Reported Past Surgical History: Cholecystectomy, Tubal Ligation Additional Past Surgical History / Comment(s): EGD & COLONOSCOPY, Afsaneh fundoplication Past Anesthesia/Blood Transfusion Reactions: No Reported Reaction Past Psychological History: Anxiety, Depression Smoking Status: Never smoker Past Alcohol Use History: None Reported Past Drug Use History: None Reported - Past Family History Mother Family Medical History: No Reported History Father Family Medical History: Myocardial Infarction (DC) Additional Family Medical History / Comment(s): Patient has 2 brothers that are healthy and 5 sisters that are healthy. Patient has 2 sons and 2 daughters that are healthy with no major medical problems. General Exam Limitations: no limitations, language barrier General appearance: alert, in no apparent distress Head exam: Present: atraumatic, normocephalic, normal inspection Eye exam: Present: normal appearance, PERRL, EOMI. Absent: scleral icterus, conjunctival injection, periorbital swelling ENT exam: Present: normal exam, mucous membranes moist Neck exam: Present: normal inspection, full ROM. Absent: tenderness, meningismus, lymphadenopathy Respiratory exam: Present: normal lung sounds bilaterally. Absent: respiratory distress, wheezes, rales, rhonchi, stridor Cardiovascular Exam: Present: regular rate, normal rhythm, normal heart sounds. Absent: systolic murmur, diastolic murmur, rubs, gallop, clicks GI/Abdominal exam: Present: soft, normal bowel sounds. Absent: distended, tenderness, guarding, rebound, rigid Course Vital Signs 08/16/20 08/16/20 19:48 21:17 Temperature 98.4 F Pulse Rate 72 67 Respiratory 18 18 Rate Blood Pressure 167/90 124/71 O2 Sat by Pulse 98 99 Oximetry EKG Findings - EKG Comments: EKG Findings:: 1955: Normal sinus rhythm, ventricular rate 70, MI interval 120, QTC of 464. 2014: Normal sinus rhythm, ventricular rate 75, MI interval 136, QTC 500, QT prolongation Medical Decision Making - Medical Decision Making Vitals are stable. Patient is well-appearing. She is complaining of chest pressure. Nontender abdomen. EKG was obtained which shows a normal sinus rhythm. She does have a possibly prolonged QT with a QTC of 500. CBC unremarkable. CMP is normal. Patient does have a pancreatitis with a lipase of 1550. Patient does have a history of cholecystectomy a few years ago with Dr. Yanes. This area was ultrasounded. There were no dilated ducts or signs of pancreatic mass. Chest x-ray was also obtained given chest pain, no change, normal chest. At this time patient will be admitted for cardiology consultation as well as GI consultation, IV antibiotics, and nothing by mouth status. Patient was supposed to have an appointment with cardiology tomorrow and it appears she did have an echocardiogram and negative troponin 3 the last time she was in the hospital. - Lab Data Result diagrams: 08/16/20 20:28 08/16/20 20:28 Lab Results 08/16/20 08/16/20 08/16/20 Range/Units 20:28 20:28 20:28 WBC 7.1 (3.8-10.6) k/uL RBC 4.59 (3.80-5.40) m/uL Hgb 13.1 (11.4-16.0) gm/dL Hct 39.5 (34.0-46.0) % MCV 86.2 (80.0-100.0) fL MCH 28.7 (25.0-35.0) pg MCHC 33.2 (31.0-37.0) g/dL RDW 12.5 (11.5-15.5) % Plt Count 290 (150-450) k/uL MPV 9.2 Neutrophils % 57 % Lymphocytes % 30 % Monocytes % 5 % Eosinophils % 5 % Basophils % 1 % Neutrophils # 4.0 (1.3-7.7) k/uL Lymphocytes # 2.1 (1.0-4.8) k/uL Monocytes # 0.4 (0-1.0) k/uL Eosinophils # 0.4 (0-0.7) k/uL Basophils # 0.1 (0-0.2) k/uL PT 10.0 (9.0-12.0) sec INR 1.0 (<1.2) APTT 30.1 H (22.0-30.0) sec Sodium 135 L (137-145) mmol/L Potassium 3.5 (3.5-5.1) mmol/L Chloride 97 L (98-107) mmol/L Carbon Dioxide 29 (22-30) mmol/L Anion Gap 9 mmol/L BUN 17 (7-17) mg/dL Creatinine 0.85 (0.52-1.04) mg/dL Est GFR (CKD-EPI)AfAm >90 (>60 ml/min/1.73 sqM) Est GFR (CKD-EPI)NonAf 80 (>60 ml/min/1.73 sqM) Glucose 137 H (74-99) mg/dL Calcium 9.4 (8.4-10.2) mg/dL Magnesium 2.2 (1.6-2.3) mg/dL Total Bilirubin 0.6 (0.2-1.3) mg/dL AST 31 (14-36) U/L ALT 23 (4-34) U/L Alkaline Phosphatase 80 (38-126) U/L Troponin I (0.000-0.034) ng/mL NT-Pro-B Natriuret Pep pg/mL Total Protein 8.1 (6.3-8.2) g/dL Albumin 4.5 (3.5-5.0) g/dL Amylase (30-110) U/L Lipase 1550 H (23-300) U/L 08/16/20 08/16/20 08/16/20 Range/Units 20:28 20:28 20:29 WBC (3.8-10.6) k/uL RBC (3.80-5.40) m/uL Hgb (11.4-16.0) gm/dL Hct (34.0-46.0) % MCV (80.0-100.0) fL MCH (25.0-35.0) pg MCHC (31.0-37.0) g/dL RDW (11.5-15.5) % Plt Count (150-450) k/uL MPV Neutrophils % % Lymphocytes % % Monocytes % % Eosinophils % % Basophils % % Neutrophils # (1.3-7.7) k/uL Lymphocytes # (1.0-4.8) k/uL Monocytes # (0-1.0) k/uL Eosinophils # (0-0.7) k/uL Basophils # (0-0.2) k/uL PT (9.0-12.0) sec INR (<1.2) APTT (22.0-30.0) sec Sodium (137-145) mmol/L Potassium (3.5-5.1) mmol/L Chloride (98-107) mmol/L Carbon Dioxide (22-30) mmol/L Anion Gap mmol/L BUN (7-17) mg/dL Creatinine (0.52-1.04) mg/dL Est GFR (CKD-EPI)AfAm (>60 ml/min/1.73 sqM) Est GFR (CKD-EPI)NonAf (>60 ml/min/1.73 sqM) Glucose (74-99) mg/dL Calcium (8.4-10.2) mg/dL Magnesium (1.6-2.3) mg/dL Total Bilirubin (0.2-1.3) mg/dL AST (14-36) U/L ALT (4-34) U/L Alkaline Phosphatase (38-126) U/L Troponin I <0.012 (0.000-0.034) ng/mL NT-Pro-B Natriuret Pep 32 pg/mL Total Protein (6.3-8.2) g/dL Albumin (3.5-5.0) g/dL Amylase 171 H (30-110) U/L Lipase (23-300) U/L Disposition Clinical Impression: Chest pain, Pancreatitis Disposition: ADMITTED IP TO THIS HOSP Is patient prescribed a controlled substance at d/c from ED?: No Referrals: Alexander Bourne DO [Primary Care Provider] - 1-2 days Time of Disposition: 23:01
[2020-08-16] MEDS ORDERED: SODIUM CHLORIDE 0.9% 500 ML 500 ML IV STA (20:23)
[2020-08-16] MEDS ORDERED: MORPHINE SULFATE 2 MG/ML SYRINGE IVP STA (20:23)
[2020-08-16] MEDS ORDERED: ASPIRIN 81 MG PO STA (20:24)
[2020-08-16 20:51] LABS: ALT 23 U/L (4-34); AST 31 U/L (14-36); African American GFR (CKD) >90 (>60 ml/min/1.73 sqM); Albumin 4.5 g/dL (3.5-5.0); Alkaline Phosphatase 80 U/L (38-126); Anion Gap 9 mmol/L; Blood Urea Nitrogen 17 mg/dL (7-17); Calcium 9.4 mg/dL (8.4-10.2); Carbon Dioxide 29 mmol/L (22-30); Chloride 97 mmol/L (98-107); Glucose 137 mg/dL (74-99); Lipase 1550 U/L (23-300); Magnesium 2.2 mg/dL (1.6-2.3); Non-African American GFR(CKD) 80 (>60 ml/min/1.73 sqM); Partial Thromboplastin Time 30.1 sec (22.0-30.0); Potassium 3.5 mmol/L (3.5-5.1); Sodium 135 mmol/L (137-145); Total Bilirubin 0.6 mg/dL (0.2-1.3); Total Protein 8.1 g/dL (6.3-8.2)
[2020-08-16 20:56] LABS: Basophils # (A) 0.1 k/uL (0-0.2); Basophils % (A) 1 %; Eosinophils # (A) 0.4 k/uL (0-0.7); Eosinophils % (A) 5 %; HCT 39.5 % (34.0-46.0); HGB 13.1 gm/dL (11.4-16.0); Lymphocytes # (A) 2.1 k/uL (1.0-4.8); Lymphocytes % (A) 30 %; MCH 28.7 pg (25.0-35.0); MCHC 33.2 g/dL (31.0-37.0); MCV 86.2 fL (80.0-100.0); Mean Platelet Volume 9.2; Monocytes # (A) 0.4 k/uL (0-1.0); Monocytes % (A) 5 %; Neutrophils % (A) 57 %; Platelet Count 290 k/uL (150-450); RBC 4.59 m/uL (3.80-5.40); RDW 12.5 % (11.5-15.5); WBC 7.1 k/uL (3.8-10.6)
--- NOTE | 2020-08-16 21:43 | XR ---
EXAMINATION TYPE: XR chest 2V DATE OF EXAM: 08/16/2020 COMPARISON: 08/07/2020 HISTORY: Chest pain TECHNIQUE: FINDINGS: Heart and mediastinum are normal. Lungs are clear. Diaphragm is normal. Bony thorax appears normal. IMPRESSION: Normal chest. No change.
--- NOTE | 2020-08-16 22:05 | US ---
EXAMINATION TYPE: US abdomen limited DATE OF EXAM: 08/16/2020 COMPARISON: NONE CLINICAL HISTORY: pancreatitis, h/o thom. EXAM MEASUREMENTS: Liver Length: 14.5 cm Gallbladder Wall: Surgically absent CBD: 0.42 cm Right Kidney: 9.1 x 3.2 x 4.3 cm Patient 3 hours post prandial, study severely limited by overlying bowel gas Pancreas: Obscured by bowel gas Liver: Partially obscured by overlying bowel gas, portions visualized wnl Gallbladder: Surgically absent Evidence for sonographic Martinez's sign: no CBD: wnl as seen Right Kidney: Somewhat obscured by overlying bowel gas, portions visualized wnl IMPRESSION: Cholecystectomy. No dilated ducts. No free fluid. No sign of pancreatic mass.
[2020-08-16] MEDS ORDERED: NALOXONE 0.4 MG/ML 1 ML VIAL IV PRN (22:53)
[2020-08-16] MEDS ORDERED: SODIUM CHLORIDE 0.9% 1,000 ML IV SCH (23:00)
[2020-08-17 04:21] VITALS: RESP 18
[2020-08-17] MEDS ORDERED: FLUoxetine HCL 20 MG CAP PO PRN (05:55)
[2020-08-17] MEDS ORDERED: LEVOTHYROXINE 50 MCG TAB PO SCH (06:30)
[2020-08-17 08:17] VITALS: BP 119/72; PULSE 61; TEMP 97
[2020-08-17] MEDS ORDERED: amLODIPine 2.5 MG TAB PO SCH (09:00)
[2020-08-17] MEDS ORDERED: LOSARTAN-HCTZ 50-12.5 MG 1 EACH TAB PO SCH (09:00)
[2020-08-17] MEDS ORDERED: PANTOPRAZOLE 40 MG TABLET PO SCH (09:00)
[2020-08-17] MEDS ORDERED: ASPIRIN 81 MG PO SCH (09:00)
[2020-08-17 09:37] LABS: ALT 23 U/L (4-34); AST 28 U/L (14-36); African American GFR (CKD) >90 (>60 ml/min/1.73 sqM); Albumin 3.8 g/dL (3.5-5.0); Alkaline Phosphatase 76 U/L (38-126); Anion Gap 7 mmol/L; Blood Urea Nitrogen 14 mg/dL (7-17); Calcium 8.8 mg/dL (8.4-10.2); Carbon Dioxide 27 mmol/L (22-30); Chloride 105 mmol/L (98-107); Glucose 103 mg/dL (74-99); Non-African American GFR(CKD) 80 (>60 ml/min/1.73 sqM); Potassium 3.5 mmol/L (3.5-5.1); Sodium 139 mmol/L (137-145); Total Bilirubin 0.3 mg/dL (0.2-1.3); Total Protein 7.3 g/dL (6.3-8.2)
--- NOTE | 2020-08-17 10:52 | P.CRDCN ---
History of Present Illness History of present illness: HISTORY OF PRESENTING ILLNESS This is a pleasant 49-year-old female past medical history significant for hypertension, dyslipidemia and hypothyroidism. She is supposed to see Dr. Dr. Ness in the office today for the first time. We have been asked to see in consultation for pain. Her son is at the bedside translating. Apparently she lost a family friend yesterday to a stoke. All day she was experiencing tightness in the chest in the left precordial region with radiation down the l eft arm. The left arm was numb and heavy. At times she also felt some palpitations. Denies shortness of breath, dizziness, nausea, vomiting or abdominal pain. The pain has subsided. She is currently resting comfortably in no acute distress. Her amylase and lipase were elevated. She is scheduled to undergo an MRCP today. DIAGNOSTICS EKG reveals has mechanism with nonspecific abnormalities, no acute ischemic changes. Chest xray needed for an acute cardiopulmonary process. Laboratory reviewed, CBC unremarkable, sodium 139, potassium 3.5, creatinine 0.85, magnesium 2.2, cardiac enzymes negative 3, amylase 171, lipase yesterday 1550 with repeat today 638 and NT proBNP 32. Current cardiac medications include amlodipine 2.5 mg daily, losartan/hydrochlorothiazide 100/25 mg daily, atorvastatin 40 mg at bedtime and aspirin 81 mg daily. Most recent echocardiogram obtained July 2020 revealed preserved LV systolic function with ejection fraction 55-60%. REVIEW OF SYSTEMS At the time of my exam: CONSTITUTIONAL: Denies fever or chills. CARDIOVASCULAR: Denies chest pain, shortness of breath, orthopnea, PND or palpitations. RESPIRATORY: Denies cough. GASTROINTESTINAL: Denies abdominal pain, diarrhea, constipation, nausea or vomiting. MUSCULOSKELETAL: Denies myalgias. NEUROLOGIC: Denies numbness, tingling or weakness. ENDOCRINE: Denies fatigue, weight change, polydipsia or polyurina. GENITOURINARY: Denies burning, hematuria or urgency with micturation. HEMATOLOGIC: Denies history of anemia or bleeding. PHYSICAL EXAMINATION Blood pressure 119/72 heart rate 61 afebrile and maintaining oxygen saturation on room air. CONSTITUTIONAL: No apparent distress. HEENT: Head is normocephalic. Pupils are equal, round. Sclerae anicteric. Mucous membranes of the mouth are moist. No JVD. No carotid bruit. CHEST EXAMINATION: Lungs are clear to auscultation. No chest wall tenderness is noted on palpation or with deep breathing. HEART EXAMINATION: Regular rate and rhythm. S1, S2 heard. No murmurs, gallops or rub. ABDOMEN: Soft, nontender. Positive bowel sounds. EXTREMITIES: 2+ peripheral pulses, no lower extremity edema and no calf tenderness. NEUROLOGIC EXAMINATION: Patient is awake, alert and oriented x3. ASSESSMENT Chest pain, atypical for angina. Pancreatitis Hypertension Dyslipidemia PLAN An acute coronary event has been ruled out. Pain is atypical to be related to angina. Ongoing medical management treatment of acute pancreatitis. We will pursue outpatient stress testing in the office. Thank you kindly for this consultation. Nurse Practitioner note has been reviewed, I agree with a documented findings and plan of care. Patient was seen and examined. Past Medical History Past Medical History: GERD/Reflux, Osteoarthritis (OA) Additional Past Medical History / Comment(s): CURRENTLY HAVING STOMACH PAIN.HX. GASTRITIS History of Any Multi-Drug Resistant Organisms: None Reported Past Surgical History: Cholecystectomy, Tubal Ligation Additional Past Surgical History / Comment(s): EGD & COLONOSCOPY, Afsaneh fundoplication Past Anesthesia/Blood Transfusion Reactions: No Reported Reaction Past Psychological History: Anxiety, Depression Smoking Status: Never smoker Past Alcohol Use History: None Reported Past Drug Use History: None Reported - Past Family History Mother Family Medical History: No Reported History Father Family Medical History: Myocardial Infarction ([place]) Additional Family Medical History / Comment(s): Patient has 2 brothers that are healthy and 5 sisters that are healthy. Patient has 2 sons and 2 daughters that are healthy with no major medical problems. Medications and Allergies Home Medications Medication Instructions Recorded Confirmed Type Levothyroxine Sodium [Synthroid] 50 mcg PO DAILY 02/16/18 08/16/20 History FLUoxetine HCL [PROzac] 20 mg PO DAILY PRN 05/15/18 08/16/20 History Esomeprazole Magnesium 40 mg PO DAILY 08/07/20 08/16/20 History Losartan/Hydrochlorothiazide 1 tab PO DAILY 08/07/20 08/16/20 History [Losartan-Hctz 100-25 mg Tab] Rumoquin Nf (Unknown Strength) 1 tab PO DAILY 08/07/20 08/16/20 History Aspirin 81 mg PO DAILY chew 08/10/20 08/16/20 Rx Meclizine [Antivert] 25 mg PO TID PRN tab 08/10/20 08/16/20 Rx amLODIPine [Norvasc] 2.5 mg PO DAILY #30 tab 08/10/20 08/16/20 Rx Atorvastatin [Lipitor] 40 mg PO HS 08/16/20 08/16/20 History Allergies Allergy/AdvReac Type Severity Reaction Status Date / Time No Known Allergies Allergy Verified 08/16/20 22:17 Physical Exam Vitals: Vital Signs Temp Pulse Pulse Resp BP BP Pulse Ox 08/17/20 04:00 64 18 103/71 08/17/20 03:15 97.2 F L 61 14 103/71 100 08/16/20 21:17 67 18 124/71 99 08/16/20 19:48 98.4 F 72 18 167/90 98 Intake and Output 08/16/20 08/17/20 08/17/20 22:59 06:59 14:59 Other: Weight 61.235 kg Results 08/16/20 20:28 08/17/20 02:46 Cardiac Enzymes 08/16/20 08/16/20 08/16/20 Range/Units 20:28 20:28 23:57 AST 31 (14-36) U/L Troponin I <0.012 <0.012 (0.000-0.034) ng/mL 08/17/20 Range/Units 02:46 AST (14-36) U/L Troponin I <0.012 (0.000-0.034) ng/mL Coagulation 08/16/20 Range/Units 20:28 PT 10.0 (9.0-12.0) sec APTT 30.1 H (22.0-30.0) sec CBC 08/16/20 Range/Units 20:28 WBC 7.1 (3.8-10.6) k/uL RBC 4.59 (3.80-5.40) m/uL Hgb 13.1 (11.4-16.0) gm/dL Hct 39.5 (34.0-46.0) % Plt Count 290 (150-450) k/uL Comprehensive Metabolic Panel 08/16/20 Range/Units 20:28 Sodium 135 L (137-145) mmol/L Potassium 3.5 (3.5-5.1) mmol/L Chloride 97 L (98-107) mmol/L Carbon Dioxide 29 (22-30) mmol/L BUN 17 (7-17) mg/dL Creatinine 0.85 (0.52-1.04) mg/dL Glucose 137 H (74-99) mg/dL Calcium 9.4 (8.4-10.2) mg/dL AST 31 (14-36) U/L ALT 23 (4-34) U/L Alkaline Phosphatase 80 (38-126) U/L Total Protein 8.1 (6.3-8.2) g/dL Albumin 4.5 (3.5-5.0) g/dL Current Medications Generic Name Dose Route Start Last Admin Trade Name Freq PRN Reason Stop Dose Admin Amlodipine Besylate 2.5 mg 08/17/20 09:00 Amlodipine 2.5 Mg Tab PO DAILY PILAR Aspirin 81 mg 08/17/20 09:00 Aspirin 81 Mg PO DAILY PILAR Atorvastatin Calcium 40 mg 08/17/20 21:00 Atorvastatin 40 Mg Tab PO HS PILAR Fluoxetine HCl 20 mg 08/17/20 05:55 Fluoxetine Hcl 20 Mg Cap PO DAILY PRN Anxiety HCTZ/Losartan Potassium 2 each 08/17/20 09:00 Losartan-Hctz 50-12.5 Mg 1 Each Tab PO DAILY PILAR Sodium Chloride 1,000 mls @ 120 mls/hr 08/16/20 23:00 08/16/20 23:20 Saline 0.9% IV 120 mls/hr .Q8H20M PILAR Administration Levothyroxine Sodium 50 mcg 08/17/20 06:30 08/17/20 06:33 Levothyroxine 50 Mcg Tab PO 50 mcg DAILY@0630 PILAR Administration Naloxone HCl 0.2 mg 08/16/20 22:53 Naloxone 0.4 Mg/Ml 1 Ml Vial IV Q2M PRN Opioid Reversal Pantoprazole Sodium 40 mg 08/17/20 09:00 Pantoprazole 40 Mg Tablet PO DAILY PILAR Intake and Output 08/16/20 08/17/20 08/17/20 22:59 06:59 14:59 Other: Weight 61.235 kg 08/16/20 20:28 08/16/20 20:28
--- NOTE | 2020-08-17 11:18 | P.HPIM ---
History of Present Illness H&P Date: 08/17/20 HISTORY OF PRESENT ILLNESS This is a 49-year-old female patient of Dr. Isaac with past medical history of gastroesophageal reflux disease status post Afsaneh fundoplication, hypertension, hyperlipidemia, hypothyroidism osteoarthritis. She was recently hospitalized in July of this year for chest pain with uncontrolled hypertension as well as vertigo suspected benign positional vertigo. Patient states that her blood pressure has been controlled at home. She now presents with another episode of chest pain on the left upper chest area with radiation to the left arm into her back. She denies any nausea or vomiting. No fever or chills. No diarrhea. No abdominal pain. She denies any alcohol use. History of Afsaneh fundoplication with Dr. Yanes in December 2014. Status post laparoscopic robotic-assisted cholecystectomy in May [address] Yanes. In March 2018, she underwent EGD with Dr. Carringtno Lanier that revealed mild antral gastritis. Normal-appearing esophagus. Patient presented to [facility] emergency center for evaluation. CBC was unremarkable. Sodium 135, potassium 3.5, chloride 97, CO2 29, BUN 17 and creatinine 0.85. Blood sugar 137. Liver function tests were normal. Troponin negative on 3 draws. ProBNP 32, amylase 171, lipase 1550. Repeat lipase this morning is 638. Chest x-ray reveals normal chest. Ultras ound of the abdomen revealed cholecystectomy. No dilated ducts. No free fluid. No sign of pancreatic mass. Patient was admitted, started on IV fluids and consult in place of cardiology and GI. REVIEW OF SYSTEMS Constitutional: No fever, no chills, no night sweats. No weight change. No weakness, fatigue or lethargy. No daytime sleepiness. EENT: No headache. No blurred vision or double vision, no loss of vision. No loss of Hearing, no ringing in the ears, no dizziness. No nasal drainage or congestion. No epistaxis. No sore throat. Lungs: No shortness of breath, cough, no sputum production. No wheezing. Cardiovascular: Reports chest pain, no lower extremity edema. No palpitations. No paroxysmal nocturnal dyspnea. No orthopnea. No lightheadedness or d izziness. No syncopal episodes. Abdominal: No abdominal pain. No nausea, vomiting. No diarrhea. No constipation. No bloody or tarry stools.. No loss of appetite. Genitourinary: No dysuria, increased frequency, urgency. No urinary retention. Musculoskeletal: No myalgias. No muscle weakness, no gait dysfunction, no frequent falls. No back pain. No neck pain. Integumentary: No wounds, no lesions. No rash or pruritus. No unusual bruising. No change in hair or nails. Neurologic: No aphasia. No facial droop. No change in mentation. No head injury. No headache. No paralysis. No paresthesia. Psychiatric: No depression. No anxiety. No mood swings. Endocrine: No abnormal blood sugars. No weight change. No excessive sweating or thirst. No cold intolerance. SOCIAL HISTORY The patient is a lifelong nonsmoker, no marijuana use, alcohol use, illicit drug use. She lives with her . She is not employed. Patient does not speak Iraqi but can understand Iraqi. Primary language is German and son helps with translation. FAMILY HISTORY Mother is alive at age 73 with history of hypertension. Father at age 60 from a myocardial infarction. Patient has 2 brothers and one has hypertension. Patient is a total of 5 sisters and 2 have hypertension. Patient has 3 children with no major medical problems. PHYSICAL EXAMINATION Gen: This is a 49-year-old female. She is seen in the ER on stretcher and appears to be comfortable and in no acute distress. HEENT: Head is atraumatic, normocephalic. Pupils equal, round. Sclerae is anicteric. NECK: Supple. No JVD. No lymphadenopathy. No thyromegaly. LUNGS: Clear to auscultation. No wheezes or rhonchi. No intercostal retractions. HEART: Regular rate and rhythm. No murmur. ABDOMEN: Soft. Bowel sounds are present. No masses. No tenderness. EXTREMITIES: No pedal edema. No calf tenderness. NEUROLOGICAL: Patient is awake, alert and oriented x3. Cranial nerves 2 through 12 are grossly intact. ASSESSMENT AND PLAN 1. Chest pain, acute coronary syndrome ruled out by cardiology. Cardiology consult appreciated. Patient to have outpatient stress testing done in the office. 2. Acute pancreatitis. Patient is currently nothing by mouth, MRCP, consult with GI. 3. Hypertension. Continue amlodipine 2.5 mg daily, Hyzaar 5012.52 daily. 4. Hypothyroidism. Continue levothyroxine 50 g daily. 5. Hyperlipidemia. Continue atorvastatin 40 mg at bedtime. 6. Gastroesophageal reflux disease status post Niesen fundoplication. Continue Protonix 40 mg daily 7. History of cholecystectomy. 8. DVT prophylaxis. Heparin subcu. 9. GI prophylaxis. Protonix. Patient will be admitted to the hospital for a minimum of 2 night stay. DISCHARGE PLAN Return home. Impression and plan of care have been directed as dictated by the signing physician. Zulma Yañez nurse practitioner acting as scribe for signing physician. Past Medical History Past Medical History: GERD/Reflux, Osteoarthritis (OA) Additional Past Medical History / Comment(s): CURRENTLY HAVING STOMACH PAIN.HX. GASTRITIS History of Any Multi-Drug Resistant Organisms: None Reported Past Surgical History: Cholecystectomy, Tubal Ligation Additional Past Surgical History / Comment(s): EGD & COLONOSCOPY, Afsaneh fundoplication Past Anesthesia/Blood Transfusion Reactions: No Reported Reaction Past Psychological History: Anxiety, Depression Smoking Status: Never smoker Past Alcohol Use History: None Reported Past Drug Use History: None Reported - Past Family History Mother Family Medical History: No Reported History Father Family Medical History: Myocardial Infarction ([place]) Additional Family Medical History / Comment(s): Patient has 2 brothers that are healthy and 5 sisters that are healthy. Patient has 2 sons and 2 daughters that are healthy with no major medical problems. Medications and Allergies Home Medications Medication Instructions Recorded Confirmed Type Levothyroxine Sodium [Synthroid] 50 mcg PO DAILY 02/16/18 08/16/20 History FLUoxetine HCL [PROzac] 20 mg PO DAILY PRN 05/15/18 08/16/20 History Esomeprazole Magnesium 40 mg PO DAILY 08/07/20 08/16/20 History Losartan/Hydrochlorothiazide 1 tab PO DAILY 08/07/20 08/16/20 History [Losartan-Hctz 100-25 mg Tab] Rumoquin Nf (Unknown Strength) 1 tab PO DAILY 08/07/20 08/16/20 History Aspirin 81 mg PO DAILY chew 08/10/20 08/16/20 Rx Meclizine [Antivert] 25 mg PO TID PRN tab 08/10/20 08/16/20 Rx amLODIPine [Norvasc] 2.5 mg PO DAILY #30 tab 08/10/20 08/16/20 Rx Atorvastatin [Lipitor] 40 mg PO HS 08/16/20 08/16/20 History Allergies Allergy/AdvReac Type Severity Reaction Status Date / Time No Known Allergies Allergy Verified 08/16/20 22:17 Physical Exam Vitals: Vital Signs Temp Pulse Pulse Resp BP BP Pulse Ox 08/17/20 08:00 97.0 F L 61 18 119/72 95 08/17/20 04:00 64 18 103/71 08/17/20 03:15 97.2 F L 61 14 103/71 100 08/16/20 21:17 67 18 124/71 99 08/16/20 19:48 98.4 F 72 18 167/90 98 Intake and Output 08/16/20 08/17/20 08/17/20 22:59 06:59 14:59 Other: Voiding Method Toilet # Voids 1 Weight 61.235 kg Results CBC & Chem 7: 08/16/20 20:28 08/17/20 02:46 Labs: Abnormal Lab Results - Last 24 Hours (Table) 08/16/20 08/16/20 08/16/20 Range/Units 20:28 20:28 20:28 APTT 30.1 H (22.0-30.0) sec Sodium 135 L (137-145) mmol/L Chloride 97 L (98-107) mmol/L Glucose 137 H (74-99) mg/dL Amylase 171 H (30-110) U/L Lipase 1550 H (23-300) U/L
[2020-08-17] MEDS ORDERED: LORazepam 2 MG/ML INJ IV STA (11:37)
--- NOTE | 2020-08-17 13:11 | MR ---
EXAMINATION TYPE: MR MRCP DATE OF EXAM: 08/17/2020 COMPARISON: CT abdomen and pelvis November 15, [address] studies HISTORY: Pancreatitis with chest pain into right shoulder, epigastric pain Standard multiplanar, multisequence MRI departmental protocol Multiplanar, multisequence images of the abdomen were acquired. Thin and thick slice MRCP imaging per formed on the MRI scanner and reviewed. FINDINGS: Liver/gallbladder/pancreas/biliary system: Gallbladder is noted surgically absent. Liver is normal in size without concerning solid or cystic mass. Pancreas remains within normal limits in size. No conc erning solid or cystic mass. No suspicious surrounding fluid. MRCP images show no suspicious intrahep atic or extra hepatic biliary dilatation. Pancreatic duct is seen and not dilated. Other: Lung bases are grossly clear. The spleen and both adrenal glands are felt within normal limits . No concerning renal mass or hydronephrosis seen bilaterally. Osseous structures are intact. No netta l dilatation. No intra-abdominal ascites. No abnormal abdominal adenopathy. No suspicious restricted diffusion. No recurrent hiatal hernia. IMPRESSION: No MRI evidence for complication related to acute pancreatitis. No pancreatic or biliary ductal dilatation noted.
[2020-08-17 14:29] LABS: Cholesterol 127 mg/dL (<200); HDL Cholesterol 41 mg/dL (40-60); LDL Cholesterol,Calculated 69 mg/dL (0-99); Triglycerides 86 mg/dL (<150)
[2020-08-17] MEDS ORDERED: ATORVASTATIN 40 MG TAB PO SCH (21:00)
[2020-08-17] MEDS ORDERED: HEPARIN SODIUM,PORCINE 5,000 UNIT/ML 1 ML VIAL SQ SCH (21:00)
[2020-08-18 10:50] LABS: IgG Subclass 3 58.1 mg/dL (11.0-85.0); IgG Subclass 4 43.2 mg/dL (3.0-175.0)
== END 2020-08-17 16:03 | disposition home or self-care (01) | DRG 880 ==
LOC: EC 19:42 → 3SCARD 22:44
PROVIDERS: ADMIT Internal Medicine Geriatric Medicine; ATTEND Internal Medicine Geriatric Medicine
DX: F41.9 Anxiety disorder, unspecified (principal); K85.90 Acute pancreatitis without necrosis or infection, unspecified; R07.9 Chest pain, unspecified; I10 Essential (primary) hypertension; Z79.82 Long term (current) use of aspirin; Z79.890 Hormone replacement therapy; Z79.899 Other long term (current) drug therapy; K21.9 Gastro-esophageal reflux disease without esophagitis; E03.9 Hypothyroidism, unspecified; E78.5 Hyperlipidemia, unspecified; F32.9 Major depressive disorder, single episode, unspecified; M19.90 Unspecified osteoarthritis, unspecified site; K29.70 Gastritis, unspecified, without bleeding; Z90.49 Acquired absence of other specified parts of digestive tract; Z87.19 Personal history of other diseases of the digestive system; Z98.51 Tubal ligation status; Z98.890 Other specified postprocedural states; Z82.49 Family history of ischemic heart disease and other diseases of the circulatory system
CPT/HCPCS: 36415; 71046; 74181; 76705; 80053; 80061; 82150; 82787; 83690; 83735; 83880; 84484; 85025; 85610; 85730; 86038; 93005; 96361; 96374; 96375; 99285

== ENCOUNTER → 2021-05-07 | Outpatient (CLI) | payer OTHER ==
--- NOTE | 2021-05-07 15:57 | FL ---
EXAMINATION TYPE: FL UGI DATE OF EXAM: 05/07/2021 COMPARISON: NONE HISTORY: Epigastric pain TECHNIQUE: A double contrast UGI study is performed. A total of 115 seconds of fluoroscopic time wa s utilized during procedure and 18 images obtained. FINDINGS: The esophagus shows normal motility and emptying into the stomach. No evidence of stricture noted. S mall sliding hiatal hernia is present. Gastroesophageal reflux is noted during the exam from the stom ach to the mid thoracic esophagus. The stomach shows normal distensibility, peristalsis, and mucosal folds. No evidence of any mass or ulcer disease. No significant gastroesophageal reflux was seen during real time performance of this study. The duodenal bulb, sweep, and proximal small bowel loops are unremarkable. IMPRESSION: Small sliding hiatal hernia. Gastroesophageal reflux.
== END | disposition home or self-care (01) ==
LOC: RADUSWWP 08:53
PROVIDERS: ATTEND Family Medicine
DX: K44.9 Diaphragmatic hernia without obstruction or gangrene (principal); K21.9 Gastro-esophageal reflux disease without esophagitis
CPT/HCPCS: 74240

== ENCOUNTER → 2022-02-22 | Outpatient (CLI) | payer OTHER ==
--- NOTE | 2022-02-24 18:41 | MM ---
Reason for Exam: Screening (asymptomatic). Last mammogram was performed 1 year(s) and 1 month(s) ago. Patient History: Menarche at age 13. First Full-Term at age 22. Postmenopausal. Patient used Hormonal Contraceptives for 1 year. Last menstrual period: 09/11/2018 Risk Values: Claudia 5 year model risk: 0.9%. NCI Lifetime model risk: 7.0%. Prior Study Comparison: 04/17/2014 Bilateral Screening Mammogram, [facility]. 10/24/2016 Bilateral Screening Mammogram, [facility]. 05/10/2018 Bilateral Screening Mammogram, [facility]. 05/24/2019 Bilateral MG screening mammo w CAD - 2, [facility]. 01/21/2021 Bilateral MG 3D screening mammo w/cad, [facility]. Tissue Density: The breast tissue is heterogeneously dense. This may lower the sensitivity of mammography. Findings: Analyzed By CAD. Upper outer quadrant focal asymmetry left breast at a middle depth appears more defined. This may represent superimposition shadow but further evaluation is recommended. Otherwise, no significant change. Overall Assessment: Incomplete: need additional imaging evaluation, BI-RAD 0 Management: Special View Mammogram of the left breast. 1. Additional views left breast to include spot 3-D CC, spot 3-D MLO, and 3-D MLO views. 2. Targeted left breast ultrasound if any persisting abnormality. Electronically signed and approved by: Coleman Heredia M.D. Radiologist
== END | disposition home or self-care (01) ==
LOC: RADMAMWWP 01-28 16:50
PROVIDERS: ATTEND Family Medicine
DX: Z12.31 Encounter for screening mammogram for malignant neoplasm of breast (principal); Z78.0 Asymptomatic menopausal state
CPT/HCPCS: 77067

== ENCOUNTER → 2022-03-03 | Outpatient (CLI) | payer OTHER ==
--- NOTE | 2022-03-03 08:26 | MM ---
Reason for Exam: Additional evaluation requested from abnormal screening. Last screening mammogram was performed less than 1 month ago. Patient History: Menarche at age 13. First Full-Term at age 22. Postmenopausal. Patient used Hormonal Contraceptives for 1 year. Risk Values: Claudia 5 year model risk: 0.9%. NCI Lifetime model risk: 7.0%. Prior Study Comparison: 05/24/2019 Bilateral MG screening mammo w CAD - 2, [facility]. 01/21/2021 Bilateral MG 3D screening mammo w/cad, [facility]. 02/22/2022 Bilateral MG screening mammo w CAD, [facility]. Tissue Density: Left: The breast tissue is heterogeneously dense. This may lower the sensitivity of mammography. Findings: Analyzed By CAD. Impression no suspicious persistent density is evident. No suspicious spiculated or lobular masses clustered microcalcification or architectural distortion is evident. Findings are likely summation density. Overall Assessment: Benign, BI-RAD 2 Management: Screening Mammogram of both breasts in 1 year. A clinical breast exam by your physician is recommended on an annual basis and results should be correlated with mammographic findings. This exam should not preclude additional follow-up of suspicious palpable abnormalities. Results were given to the patient verbally at the time of exam. Electronically signed and approved by: Maurice Lagunas D.O. Radiologis
== END | disposition home or self-care (01) ==
LOC: RADMAMWWP 07:37
PROVIDERS: ATTEND Family Medicine
DX: R92.8 Other abnormal and inconclusive findings on diagnostic imaging of breast (principal); Z78.0 Asymptomatic menopausal state
CPT/HCPCS: 77061; 77065

== ENCOUNTER → 2022-04-11 | Outpatient (CLI) | payer OTHER ==
--- NOTE | 2022-04-11 18:34 | BD ---
EXAMINATION TYPE: Axial Bone Density DATE OF EXAM: 04/11/2022 COMPARISON: NEW TO BONE DENSITY.....BASELINE STUDY CLINICAL HISTORY: 51 years year old Female. ICD-10 CODE: Z13.820 ENCOUNTER FOR SCREENING FOR OSTEOPO R Height: 59.8 Weight: 131 LANG UAGE BARRIER, SON HER TO TRANSLATE FRAX RISK QUESTIONS: Family History (Parent hip fracture): YES RISK FACTORS HISTORY OF: Family History of Osteoporosis: YES, MOTHER Postmenopausal woman: YES, AT 50 Hyperparathyroidism: NO Adrenal Insufficiency: NO MEDICATIONS: Thyroid Medications: YES, SYNTHROID PRODUCT, FOR 5 YRS Additional Medications: THYROID, XANAX, BP MEDS, Additional History: THYROID, HYPERTENSION, ANXIETY EXAM MEASUREMENTS: Bone mineral densitometry was performed using the Rising System. Bone mineral density as measured about the Lumbar spine is: ----- L1-L4(G/cm2): 0.878 T Score Values are as follows: ----- L1: -2.5 ----- L2: -3.2 ----- L3: -2.2 ----- L4: -2.4 ----- L1-L4: -2.5 Bone mineral density FIRST DEXA....BASELINE STUDY Bone mineral density about the R hip (g/cm2): 0.908 Bone mineral density about the L hip (g/cm2): 0.938 T Score values are as follows: -----R Neck: -1.5 -----L Neck: -1.0 -----R Total: -0.8 -----L Total: -0.5 Bone mineral density BASELINE STUDY FRAX%s: The graph provided illustrates a 6.6% chance for a major osteoporotic fx and a 0.3% chance fo r the hips probability for fx in 10 years time. IMPRESSION: Osteoporosis (T Score less than -2.5). There is increased fracture risk and therapy is usually indicated based on age. Re-Screen 1-2 years. NOTE: T-SCORE=SD OF THE YOUNG ADULT MEAN.
--- NOTE | 2022-04-12 11:55 | CA ---
Stress Echo Report Noemí Morrison Age: 51 Gender: F : 1970 Exam Date: 04/11/2022 10:17 Exam Location: [facility] Ht (in): 60 Wt (lb): 132 Ordering Physician: Nancy Gallardo DO Referring Physician: Nancy Gallardo DO Yard Laborer: Pavithra Cohen RDCS Technologist Procedure CPT: Indication: R07.9,Z13.820 ENCOUNTER FOR SCREENING FOR OSTEOPOR ICD-9 Codes: Rhythm: Patient History: Cardiac Medications: Medications in past 24 hours: Contrast: Stress Results Protocol: Jovon Total dose(mL): Exercise Duration (min:sec): Max ST Depression (mm): Angina Score: Russo Score: METS: 10.5 Resting HR: 68 Resting BP: 158 / 86 Peak HR: 143 Peak BP: 184 / 83 Max Predicted HR: 167 86 % Max Predicted HR Target HR: 142 Double Product: [id number] Stress Summary: BP Response: Reason for Termination: Reached target heart rate or work-load Cardiac Symptoms: Test terminated after reaching target heart rate (85% max predicted) ECG Analysis Resting ECG: Stress ECG: Arrhythmia: Echo Analysis Resting Echo: Peak Echo Analysis: MEASUREMENTS (Male/Female) Normal Values CONCLUSIONS Exercise stress echo Baseline heart rate 69 beats a minute, Baseline blood pressure 158/86. His mercury Patient exercised on a Jovon protocol for 9 minutes Peak heart rate 142 beats a minute normal blood pressure response No ECG evidence for ischemia no echocardiographic evidence for ischemia Excellent augmentation of overall LV contractility without development of any wall motion abnormalities both at peak exercise as well as recovery No arrhythmias Delayed reading on account of nonavailability of ECG and echo images Dr. Shane Capone MD (Electronically Signed) Final Date: 12 April 2022 11:54
== END | disposition home or self-care (01) ==
LOC: RADBDWWP 09:14
PROVIDERS: ATTEND Family Medicine
DX: M81.0 Age-related osteoporosis without current pathological fracture (principal)
CPT/HCPCS: 77080; 93351

== ENCOUNTER → 2022-06-06 | Outpatient (CLI) | payer OTHER ==
--- NOTE | 2022-06-06 17:10 | US ---
EXAMINATION TYPE: US transvaginal DATE OF EXAM: 06/06/2022 COMPARISON: 11/15/2018 CLINICAL HISTORY: 51-year-old female R10.2 PELVIC and PERINEAL PAIN. Bilateral intermittent pelvic pa in when standing from a sitting position for 1 week. TECHNIQUE: Transvaginal (TV). Date of LMP: Postmenopausal for 3 years FINDINGS: EXAM MEASUREMENTS: Uterus: 8.1 x 3.5 x 5.4 cm Endometrial Stripe: 0.73 cm Right Ovary: 1.9 x 1.3 x 1.7 cm Left Ovary: 3.1 x 2.1 x 2.5 cm 1. Uterus: Retroverted. The myometrium is heterogeneous. There are numerous cervical nabothian cysts . 2. Endometrium: Trace fluid within the uterine cavity. 3. Right Ovary: wnl 4. Left Ovary: Simple cyst measuring 2.7 x 1.9 x 2.2cm 5. Bilateral Adnexa: wnl 6. Posterior cul-de-sac: wnl IMPRESSION: 1. Endometrial stripe at 7.3 mm measures borderline thickened for a postmenopausal female. Consider r eassessing endometrial thickness at 2-3 months. 2. Trace fluid within the uterine cavity. 3. A 2.7 cm cyst of the left ovary, abnormal in a postmenopausal female. For a simple cyst, annual morfin rveillance ultrasound is recommended.
== END | disposition home or self-care (01) ==
LOC: RADUSWWP 14:56
PROVIDERS: ATTEND Family Medicine
DX: N83.202 Unspecified ovarian cyst, left side (principal)
CPT/HCPCS: 76830

== ENCOUNTER → 2022-08-15 | Outpatient (CLI) | payer OTHER ==
--- NOTE | 2022-08-15 14:34 | US ---
EXAMINATION TYPE: US transvaginal DATE OF EXAM: 08/15/2022 COMPARISON: CLINICAL HISTORY: N83.202 Ovarian cyst Left side. hx LO cyst TECHNIQUE: Transvaginal (TV) Date of LMP: [employer], EXAM MEASUREMENTS: Uterus: 5.2 x 4.7 x 3.2 cm Endometrial Stripe: 0.1 cm Right Ovary: 2.0 x 1.2 x 0.8 cm Left Ovary: 2.4 x 1.0 x 0.7 cm 1. Uterus: Retroverted wnl 2. Endometrium: wnl 3. Right Ovary: wnl 4. Left Ovary: wnl, previous cyst not visualized 5. Bilateral Adnexa: wnl 6. Posterior cul-de-sac: no free fluid Cervix- nabothian cysts IMPRESSION: Cervical nabothian cysts. Otherwise unremarkable study.
== END | disposition home or self-care (01) ==
LOC: RADUSWWP 13:53
PROVIDERS: ATTEND Family Medicine
DX: N88.8 Other specified noninflammatory disorders of cervix uteri (principal); N83.202 Unspecified ovarian cyst, left side
CPT/HCPCS: 76830